=== PATIENT | female | born 1970 | race Two or more races ===

== ENCOUNTER 2017-02-26 10:42 | Emergency (ER) | payer OTHER ==
[2017-02-26 10:55] VITALS: BP 180/100; PULSE 65; TEMP 97.8; BMI 26.6
--- NOTE | 2017-02-26 11:07 | PDOC ---
History of Present Illness - General Chief Complaint: Urinary Problem Stated Complaint: VAGINAL INFECTION Time Seen by Provider: 02/26/17 10:57 History Source: Patient Exam Limitations: No Limitations - History of Present Illness Initial Comments: 02/26/17 11:03 Patient is a 46-year-old female history of diabetes and hypertension currently out of her medication for both. Patient presents with 2 day of dysuria, frequency, no bleeding, no vaginal discharge, last sexual encounter was yesterday with her . Reports symptoms prior to that. Lower back pain. No fever. Past Medical History: Denies. Allergies: No known allergies Medications: Enalapril, metformin Family History: Non-contributory Social History: Denies smoking, alcohol use, or IVDU Review of Systems GENERAL/CONSTITUTIONAL: No fever or chills. No weakness. No weight change. HEAD, EYES, EARS, NOSE AND THROAT: No change in vision. No ear pain or discharge. No sore throat. CARDIOVASCULAR: No chest pain or shortness of breath. RESPIRATORY: No cough, wheezing, or hemoptysis. GASTROINTESTINAL: No nausea, vomiting, diarrhea or constipation. No rectal bleeding. GENITOURINARY: Dysuria, frequency, low back pain. MUSCULOSKELETAL: No joint or muscle swelling or pain. No neck or back pain. SKIN : No rash or easy bruising. Physical Exam: GENERAL: The patient is awake, alert, and fully oriented, in no acute distress. NECK: Normal range of motion, supple without lymphadenopathy, JVD, or masses. LUNGS: Breath sounds equal, clear to auscultation bilaterally. No wheezes, and no crackles. HEART: Regular rate and rhythm, normal S1 and S2 without murmur, rub or gallop. ABDOMEN: Soft, suprapubic tenderness, normoactive bowel sounds. No guarding, no rebound. No masses. No bruising or abrasions MUSCULOSKELETAL: Normal range of motion, no edema. No clubbing or cyanosis. No cords, erythema, or tenderness. No CVA Tenderness with fist palpation. NEUROLOGICAL: Cranial nerves II through XII grossly intact. Normal speech, normal gait. SKIN: Warm, Dry, normal turgor, no rashes or lesions noted. 02/26/17 12:41 Past History - Past Medical History Allergies/Adverse Reactions: Allergies Allergy/AdvReac Type Severity Reaction Status Date / Time No Known Allergies Allergy Verified 02/26/17 10:48 Home Medications: Ambulatory Orders Enalapril Maleate [Vasotec] 20 mg PO DAILY #30 tablet 02/26/17 Fluconazole [Diflucan -] 100 mg PO ONCE #1 tablet 02/26/17 Metformin HCl 500 mg PO BID 02/26/17 Nitrofurantoin Monohyd/M-Cryst [Macrobid -] 100 mg PO BID #14 capsule 02/26/17 Diabetes: Yes (niddm) HTN: Yes - Surgical History Abdominal Surgery: Yes (tubal ligation) - Psycho/Social/Smoking Cessation Hx Anxiety: No Suicidal Ideation: No Smoking History: Never smoked Have you smoked in the past 12 months: No Information on smoking cessation initiated: No Hx Alcohol Use: No Drug/Substance Use Hx: No Substance Use Type: None *Physical Exam - Vital Signs Last Vital Signs Temp Pulse Resp BP Pulse Ox 97.8 F 65 18 180/100 100 02/26/17 10:49 02/26/17 10:49 02/26/17 10:49 02/26/17 10:49 02/26/17 10:49 Medical Decision Making - Medical Decision Making 02/26/17 11:28 A/P : Patient with two days of dysuria, lower back pain, no vaginal discomfort or symptoms. Patient reports that several days ago, she thought she was getting a vaginal infection, had itching, then urinary pain started. Itching is resolved. Laboratory Tests 02/26/17 11:00 Urine Color Yellow Urine Appearance Cloudy Urine pH 6.0 Ur Specific [place] Pending Urine Protein 2+ H Urine Glucose (UA) Negative Urine Ketones Negative Urine Blood 3+ H Urine Nitrite Negative Urine Bilirubin Negative Urine Urobilinogen Negative Ur Leukocyte Esterase 3+ H Urine RBC 8 Urine WBC 369 Ur Epithelial Cells Rare Urine Bacteria Rare Urine Mucus Rare Urine HCG, Qual Negative Patient with UTI. + 3 blood, just completed menses a day ago. Will DC patient on macrobid, one dose of diflucan. Patient also given prescription for her HTN meds and metformin, with strict instructions to follow up with PM as soon as possible. I discussed the physical exam findings, ancillary test results and final diagnoses with the patient. I answered all of the patient's questions. The patient was satisfied with the care received and felt comfortable with the discharge plan and treatment plan. The patient will call to arrange follow-up and will return to the Emergency Department with any new, persistent or worsening symptoms. *DC/Admit/Observation/Transfer Diagnosis at time of Disposition: Medication refill Urinary tract infection Qualifiers: Urinary tract infection type: site unspecified Hematuria presence: without hematuria Qualified Code(s): N39.0 - Urinary tract infection, site not specified - Discharge Dispostion Disposition: HOME Condition at time of disposition: Good Admit: No - Prescriptions Prescriptions: Fluconazole [Diflucan -] 100 mg PO ONCE #1 tablet Nitrofurantoin Monohyd/M-Cryst [Macrobid -] 100 mg PO BID #14 capsule Enalapril Maleate [Vasotec] 20 mg PO DAILY #30 tablet - Patient Instructions Printed Discharge Instructions: DI for Urinary Tract Infection (UTI) Additional Instructions: Recommend follow-up with BILLING CLERK If any increased back pain, nausea vomiting, blood in urine, or any other concerns return to ER
[2017-02-26 11:13] LABS: URINE APPEARANCE CLOUDY; URINE BILIRUBIN NEGATIVE (NEGATIVE); URINE COLOR YELLOW; URINE GLUCOSE (UA) NEGATIVE (NEGATIVE); URINE KETONE NEGATIVE (NEGATIVE); URINE NITRITE NEGATIVE (NEGATIVE); URINE UROBILINOGEN NEGATIVE E.U./dl (0.2-1.0)
[2017-02-26 11:16] LABS: URINE BLOOD 3+ (NEGATIVE); URINE LEUK ESTERASE 3+ (NEGATIVE); URINE PROTEIN 2+ (NEGATIVE)
[2017-02-26 11:20] LABS: URINE BACTERIA RARE /hpf (NONE SEEN); URINE MUCUS RARE; URINE RBC 8 /hpf (0-3); URINE WBC 369 /hpf (3-5)
== END 2017-02-26 11:56 | disposition home or self-care (01) ==
LOC: JERFT 10:42
DX: N39.0 Urinary tract infection, site not specified (principal); Z76.0 Encounter for issue of repeat prescription; E11.9 Type 2 diabetes mellitus without complications; I10 Essential (primary) hypertension
CPT/HCPCS: 81003; 81015; 84703; 87086; 87186; 99281-25

== ENCOUNTER 2017-03-30 20:19 | Emergency (ER) | payer OTHER ==
[2017-03-30 20:40] VITALS: BP 151/97; PULSE 66; TEMP 98.1; BMI 26.6
[2017-03-30] MEDS ORDERED: DIPHTH,PERTUSS(ACELL),TET 0.5 ML DISP.SYRIN IM ONE (22:38)
[2017-03-30] MEDS ORDERED: AMPICILLIN NA/SULBACTAM NA 3 GM in SODIUM CHLORIDE 100 ML IVPB ONE (22:45)
--- NOTE | 2017-03-30 22:51 | PDOC ---
History of Present Illness <Charley Navarro - Last Filed: 03/30/17 23:14> - History of Present Illness Initial Comments: 03/30/17 22:45 CHIEF COMPLAINT: cat bite HISTORY OF PRESENT ILLNESS: 47 yo F with hx of NIDDM and HTN presents to [facility] with cat bite. Patient states her cat bit her on the forearm while she was trying to give it a bath today. Patient states she washed the bite with soap and cleaned it with iodine. Patient states her cat has never had vaccines "but was supposed to get some next week." Patient does not remember the last time she received a tetanus shot. No recent travel or sick contacts. PAST MEDICAL HISTORY: as per HPI FAMILY HISTORY: Denies SOCIAL HISTORY: Denies tobacco, alcohol, illicit drug use. SURGICAL HISTORY: Denies ALLERGIES: No known drug allergies REVIEW OF SYSTEMS General/Constitutional: Denies fever or chills. Gastrointestinal: Denies nausea, vomiting, diarrhea. Skin and breasts: Cat bite to left forearm, swelling. PHYSICAL EXAM General Appearance: Well-appearing, appropriately dressed. No apparent distress. HEENT: EOMI, PERRLA Respiratory/Chest: Lungs CTAB. Cardiovascular: RRR. S1, S2. Vascular Pulses: Dorsalis-Pedis (R): 2+, Dorsalis-Pedis (L): 2+ Musculoskeletal/Extremities: Normal inspection. FROM of all extremities, normal capillary refill. Pelvis Stable. No CVA tenderness. No tenderness to extremities, pedal edema, swelling, erythema or deformity. Integumentary: 4 puncture bite wounds to dorsal aspect of left forearm with surrounding tenderness, erythema, swelling and warmth. Appropriate color, dry , warm. No cyanosis, erythema, jaundice or rash Neurologic: embroidery specialist II-XII intact. Fully oriented, alert. Appropriate mood/affect. Motor strength 5/5. No appreciable EOM palsy, facial droop or sensory deficit. <Cecelia Sanchez - Last Filed: 03/31/17 14:38> - General Chief Complaint: Bite Stated Complaint: CAT BITE Time Seen by Provider: 03/30/17 21:53 Past History <Charley Navarro - Last Filed: 03/30/17 23:14> - Past Medical History Diabetes: Yes (niddm) HTN: Yes - Surgical History Abdominal Surgery: Yes (tubal ligation) - Psycho/Social/Smoking Cessation Hx Anxiety: No Suicidal Ideation: No Smoking History: Never smoked Have you smoked in the past 12 months: No Hx Alcohol Use: No Drug/Substance Use Hx: No Substance Use Type: None <Cecelia Sanchez - Last Filed: 03/31/17 14:38> - Past Medical History Allergies/Adverse Reactions: Allergies Allergy/AdvReac Type Severity Reaction Status Date / Time No Known Allergies Allergy Verified 03/30/17 20:40 Home Medications: Ambulatory Orders Enalapril Maleate [Vasotec] 20 mg PO DAILY #30 tablet 02/26/17 Fluconazole [Diflucan -] 100 mg PO ONCE #1 tablet 02/26/17 Metformin HCl 500 mg PO BID 02/26/17 Nitrofurantoin Monohyd/M-Cryst [Macrobid -] 100 mg PO BID #14 capsule 02/26/17 Amoxicillin/Potassium Clav [Augmentin 875-125 Tablet] 1 each PO BID #20 tablet 03/31/17 *Physical Exam - Vital Signs Last Vital Signs Temp Pulse Resp BP Pulse Ox 98.1 F 66 18 151/97 99 03/30/17 20:37 03/30/17 20:37 03/30/17 20:37 03/30/17 20:37 03/30/17 20:37 <Charley Navarro - Last Filed: 03/30/17 23:14> - Vital Signs Last Vital Signs Temp Pulse Resp BP Pulse Ox 98.1 F 66 18 151/97 99 03/30/17 20:37 03/30/17 20:37 03/30/17 20:37 03/30/17 20:37 03/30/17 20:37 <Cecelia Sanchez - Last Filed: 03/31/17 14:38> ED Treatment Course - Medications Given in the ED: ED Medications Discontinued Medications Generic Name Dose Route Start Last Admin Trade Name Freq PRN Reason Stop Dose Admin Ampicillin Sodium/Sulbactam 100 mls @ 200 mls/hr 03/30/17 22:45 03/30/17 23:04 Sodium 3 gm/ Sodium Chloride IVPB 03/30/17 23:14 200 mls/hr ONCE ONE Administration <Charley Navarro - Last Filed: 03/30/17 23:14> Medical Decision Making - Medical Decision Making 03/30/17 22:50 47 yo F with hx of NIDDM and HTN presents to fast track with cat bite. -Tdap IM -Patient does not meet rabies PEP algorithm, animal is to be observed for 10 days prior to beginning rabies PEP. Discussed case with attending MD Navarro, patient transferred to main ED for first dose IV abx. -Unasyn 3 g IVPB, will rx Augmentin on dispo <Cecelia Sanchez - Last Filed: 03/31/17 14:38> *DC/Admit/Observation/Transfer - Discharge Dispostion Admit: No <Charley Navarro - Last Filed: 03/30/17 23:14> <Cecelia Sanchez - Last Filed: 03/31/17 14:38> Diagnosis at time of Disposition: Cat bite Qualifiers: Encounter type: initial encounter Qualified Code(s): W55.01XA - Bitten by cat, initial encounter - Discharge Dispostion Disposition: HOME Condition at time of disposition: Stable - Prescriptions Prescriptions: Amoxicillin/Potassium Clav [Augmentin 875-125 Tablet] 1 each PO BID #20 tablet - Patient Instructions Printed Discharge Instructions: How to Care for a Domestic Animal Bite Additional Instructions: Regrese al departamento de emergencias si la hinchazn empeora, si tiene fiebre , o si hay regino bazzi en el brazo. Print Language: OCCITAN
[2017-03-30] MEDS ORDERED: AMPICILLIN NA/SULBACTAM NA 1.5 GM VIAL ONE (22:53)
== END 2017-03-30 23:41 | disposition home or self-care (01) ==
LOC: JERFT 20:19 → JER 20:19
DX: S51.852A Open bite of left forearm, initial encounter (principal); W55.01XA Bitten by cat, initial encounter; Y93.K9 Activity, other involving animal care; Y92.89 Other specified places as the place of occurrence of the external cause; I10 Essential (primary) hypertension; E11.9 Type 2 diabetes mellitus without complications; Z79.84 Long term (current) use of oral hypoglycemic drugs
CPT/HCPCS: 90715; 96365; 99281-25

== ENCOUNTER 2017-03-31 20:18 | Inpatient (IN) | payer OTHER ==
[2017-03-31] MEDS ORDERED: PIPERACILLIN/TAZOB 4.5 GM/100 ML PRE-DOCKED IVPB ONE (21:40)
[2017-03-31] MEDS ORDERED: cefTRIAXone 1 GM/50 ML BAG (PRE-DOCKED) IVPB ONE (21:40)
[2017-03-31 21:44] LABS: BASOPHIL 0.5 % (0-2.0); EOSINOPHIL 1.7 % (0-4.5); MCH 28.6 pg (25.7-33.7); MCHC 33.1 g/dl (32.0-36.0); MEAN CELL VOLUME 86.2 fl (80-96); MEAN PLT VOLUME 9.5 fl (7.5-11.1); PLATELET COUNT 162 K/MM3 (134-434)
--- NOTE | 2017-03-31 21:48 | PDOC ---
History of Present Illness - General Chief Complaint: Revisit,Wound Recheck Stated Complaint: FOLLOW UP Time Seen by Provider: 03/31/17 21:24 History Source: Patient, Old Records Exam Limitations: Language Barrier - History of Present Illness Initial Comments: 03/31/17 21:42 47yo Female patient w/ PmHx: DM, and HTN presents to ED c/o worsening symptoms from cat bite yesterday. Patient was reportedly bitten by her cat while trying to give it a bath yesterday. She was seen and treated with Tetanus, Unasyn 3G and sent home with Augmentin orally. Patient now returns with worsening left arm pain, swelling, redness, and decreased ROM. She denies fever, CP, Abd pain, n/v/d, diff breathing or any other complaints at this time. PCP- None. Timing/Duration: reports: changing over time, getting worse. denies: just prior to arrival, other, constant, gone now, intermittent, week, yesterday, this afternoon, this evening, this morning Severity: Yes: severe. No: mild, moderate Location: reports: extremities. denies: none, face, feet, genitalia, generalized, hands, other, scalp, torso Respiratory Risk Factors: denies: no cause identified, exposure to illness, exposure to allergen, foods, insect bite, insect sting, medications, pollen, soaps, other Modifying Factors: worse with: antihistamine, calamine lotion, prednisone, scratching, topical steriods, other Associated Symptoms: reports: swelling/mass/lumps. denies: denies symptoms, blisters, change in skin texture, edema, fever, flushing, headache, hives, jaundice, malaise, nasal congestion, numbness, pallor, paresthesia, petechiae, rash, sore throat, tingling, other Past History - Travel Traveled outside of the country in the last 30 days: No Close contact w/someone who was outside of country & ill: No - Past Medical History Allergies/Adverse Reactions: Allergies Allergy/AdvReac Type Severity Reaction Status Date / Time No Known Allergies Allergy Verified 03/31/17 20:23 Home Medications: Ambulatory Orders Enalapril Maleate [Vasotec] 20 mg PO DAILY #30 tablet 02/26/17 Amoxicillin/Potassium Clav [Augmentin 875-125 Tablet] 1 each PO BID #20 tablet 03/31/17 Diabetes: Yes (niddm) HTN: Yes - Surgical History Abdominal Surgery: Yes (tubal ligation) - Psycho/Social/Smoking Cessation Hx Anxiety: No Suicidal Ideation: No Smoking History: Never smoked Have you smoked in the past 12 months: No Hx Alcohol Use: No Drug/Substance Use Hx: No Substance Use Type: None Review of Systems - Review of Systems Able to Perform ROS?: Yes Is the patient limited Togolese proficient: No Constitutional: No: Chills, Fever Musculoskeletal: Yes: Other (Decreased ROM left arm) Integumentary: Yes: Erythema, Other (Swelling, Pain) Neurological: No: Numbness, Paresthesia, Tingling, Weakness, Ataxia All Other Systems: Reviewed and Negative *Physical Exam - Vital Signs Last Vital Signs Temp Pulse Resp BP Pulse Ox 98.8 F 76 18 145/68 99 03/31/17 20:20 03/31/17 20:20 03/31/17 20:20 03/31/17 20:20 03/31/17 20:20 - Physical Exam General Appearance: Yes: Nourished, Appropriately Dressed, Apparent Distress, Moderate Distress. No: Mild Distress, Severe Distress Neck: positive: Trachea midline, Supple. negative: Stridor, Lymphadenopathy (R) , Lymphadenopathy (L) Respiratory/Chest: positive: Lungs Clear, Normal Breath Sounds. negative: Chest Tender, Respiratory Distress, Accessory Muscle Use, Labored Respiration, Rapid RR, Stridor, Wheezing Cardiovascular: positive: Regular Rhythm, Regular Rate. negative: Edema Gastrointestinal/Abdominal: positive: Normal Bowel Sounds, Soft. negative: Distended, Guarding, Rebound, Tenderness Musculoskeletal: positive: Normal Inspection. negative: CVA Tenderness, Decreased Range of Motion, Vertebral Tenderness Extremity: positive: Normal Capillary Refill, Swelling, Erythema, Inflammation. negative: Normal Inspection (Left arm with puncture wounds, Cellulits), Normal Range of Motion (Left arm) Integumentary: positive: Normal Color, Dry, Warm, Swelling Neurologic: positive: balance staff inspector II-XII NML intact, Fully Oriented, Alert, Normal Mood/ Affect, Normal Response. negative: Motor Strength 5/5 (Decrease Left arm movement) ED Treatment Course - LABORATORY CBC & Chemistry Diagram: 03/31/17 21:40 03/31/17 21:40 *DC/Admit/Observation/Transfer Diagnosis at time of Disposition: Cellulitis of left upper extremity Cat bite Qualifiers: Encounter type: initial encounter Qualified Code(s): W55.01XA - Bitten by cat, initial encounter - Discharge Dispostion Condition at time of disposition: Fair Admit: Yes
[2017-03-31] MEDS ORDERED: PIPERACILLIN/TAZOB 4.5 GM 100 ML IVPB ONE (21:51)
[2017-03-31] MEDS ORDERED: CEFTRIAXONE 50 ML ONE (21:51)
[2017-03-31 22:09] LABS: ALBUMIN 3.9 g/dl (3.4-5.0); ANION GAP 9 (8-16); BILIRUBIN,TOTAL 0.3 mg/dL (0.2-1.0); CALCIUM 9.4 mg/dL (8.5-10.1); CO2 24 mmol/L (21-32); GLUCOSE,RANDOM 288 mg/dL (74-106); SGOT/AST 14 U/L (15-37); SGPT/ALT 34 U/L (12-78); TOT PROT 7.6 g/dl (6.4-8.2)
[2017-03-31] MEDS ORDERED: SODIUM CHLORIDE 1,000 ML IV STA (22:09)
[2017-03-31] MEDS ORDERED: morphine CARPU-JECT 4 MG/1 ML DISP.SYRIN IVPUSH ONE (22:09)
[2017-03-31 22:10] LABS: ALK PHOS 101 U/L (45-117)
[2017-03-31] MEDS ORDERED: morphine CARPU-JECT 4 MG/1 ML DISP.SYRIN ONE (22:17)
--- NOTE | 2017-03-31 23:09 | PN ---
Teaching Attending Note Name of Resident: Katie Albarado ATTENDING PHYSICIAN STATEMENT I saw and evaluated the patient. I reviewed the resident's note and discussed the case with the resident. I agree with the resident's findings and plan as documented. SUBJECTIVE: 47 yo F with pmhx of DM, and HTN who presents with cat bite. Notes she was in the ED yesterday for same bite and was given Augmentin. Pt. states pain worsened today. Notes also increased erythema and edema, still has range of motion of all fingers. States she took the Augmentin OBJECTIVE: Physical: VS: Vital Signs Period Temp Pulse Resp BP Sys/Stark Pulse Ox Last 24 Hr 98.8 F 76 18 145/68 99-99 GEN: NAD, resting in bed, able to speak full sentences HEENT: NCAT, PERRL, throat without erythema or exudates CARD: RRR S1, S2 RESP: CTAB ABD: BS X4, NTD to palpation EXT: Left forearm with 7X2 area extending from wrist to mid-arm. CBCD WBC 11.0 K/mm3 (4.0-10.0) H 03/31/17 21:40 RBC 4.63 M/mm3 (3.60-5.2) 03/31/17 21:40 Hgb 13.2 GM/dL (10.7-15.3) 03/31/17 21:40 Hct 39.9 % (32.4-45.2) 03/31/17 21:40 MCV 86.2 fl (80-96) 03/31/17 21:40 MCHC 33.1 g/dl (32.0-36.0) 03/31/17 21:40 RDW 14.0 % (11.6-15.6) 03/31/17 21:40 Plt Count 162 K/MM3 (134-434) 03/31/17 21:40 MPV 9.5 fl (7.5-11.1) 03/31/17 21:40 CMP Sodium 135 mmol/L (136-145) L 03/31/17 21:40 Potassium 3.7 mmol/L (3.5-5.1) 03/31/17 21:40 Chloride 102 mmol/L (98-107) 03/31/17 21:40 Carbon Dioxide 24 mmol/L (21-32) 03/31/17 21:40 Anion Gap 9 (8-16) 03/31/17 21:40 BUN 12 mg/dL (7-18) 03/31/17 21:40 Creatinine 1.0 mg/dL (0.55-1.02) 03/31/17 21:40 Creat Clearance w eGFR 59.69 (>60) 03/31/17 21:40 Random Glucose 288 mg/dL (74-106) H 03/31/17 21:40 Calcium 9.4 mg/dL (8.5-10.1) 03/31/17 21:40 Total Bilirubin 0.3 mg/dL (0.2-1.0) 03/31/17 21:40 AST 14 U/L (15-37) L 03/31/17 21:40 ALT 34 U/L (12-78) 03/31/17 21:40 Alkaline Phosphatase 101 U/L (45-117) 03/31/17 21:40 Total Protein 7.6 g/dl (6.4-8.2) 03/31/17 21:40 Albumin 3.9 g/dl (3.4-5.0) 03/31/17 21:40 Home Medications Medication Instructions Recorded Enalapril Maleate [Vasotec] 20 mg PO DAILY #30 tablet 02/26/17 Amoxicillin/Potassium Clav 1 each PO BID #20 tablet 03/31/17 [Augmentin 875-125 Tablet] ASSESSMENT AND PLAN: 47 yo F with pmhx of DM and HTN who presents post cat bite with progression on Augmentin with increased Cellulitis 1.) Cellulitis secondary to Cat bite - Zosyn - Blood cx - Xray - ID consult 2.) DM - FS - RAISS 3.) HTN - C/W Vasotec 4.) Dvt Ppx - Low Risk- SCDS Place in Med-Sx
--- NOTE | 2017-04-01 00:06 | HP ---
CHIEF COMPLAINT: worsening L arm pain PCP: none Family Contact: Varsha Sauceda (, ); he would like to be contacted if there are any updates. History Source: Interview conducted partly in Kosovan with partner (Varsha) translating HISTORY OF PRESENT ILLNESS: Patient is a 47yo woman with PMH of HTN and poorly controlled NIDDM who presents with increasing L forearm pain and swelling following a cat bite/ scratch 24hours ago. The patient was at her US[employer] when she attempted to bathe her cat, who bit her 3-4 times in the L forearm. She presented to the ED yesterday following the event, and received tetanus shot and started on Augmentin PO. She endorses that she has been taking the Augmentin as directed, and has not skipped a dose. She returned again this evening, because of worsening pain. She endorses feeling subjectively cold and having chills, but denies any fever, nausea or vomiting. No chest pain, pressure or tightness. No myalgia or arthralgia. Of note, they received the cat from a friend, who is only about 1 years old, and has yet to see vet. ER course was notable for: (1) Afebrile without leukocytosis (2)Received 1 dose X 4gm Unasyn IVP Recent Travel: No PAST MEDICAL HISTORY: #HTN - on home Enalapril #NIDDM - was on Metformin 500 BID; stated stop taking it a few months ago because she doesn't have health insurance. However, she is on Medicaid PAST SURGICAL HISTORY: #C - section x2 #Tubal ligation Social History: From [place], does not work, has two teenage sons (ages 10 & 14) , one of whom is Autistic Smoking: no Alcohol: no Drugs: no Family History: non-contributory Allergies: NKDA HOME MEDICATIONS: Home Medications Medication Instructions Recorded Enalapril Maleate [Vasotec] 20 mg PO DAILY #30 tablet 02/26/17 Amoxicillin/Potassium Clav 1 each PO BID #20 tablet 03/31/17 [Augmentin 875-125 Tablet] REVIEW OF SYSTEMS CONSTITUTIONAL: +chills Absent: fever, diaphoresis, generalized weakness, malaise, loss of appetite, weight change HEENT: Absent: rhinorrhea, nasal congestion, throat pain, throat swelling, difficulty swallowing, mouth swelling, ear pain, eye pain, visual changes CARDIOVASCULAR: Absent: chest pain, syncope, palpitations, irregular heart rate, lightheadedness , peripheral edema RESPIRATORY: Absent: cough, shortness of breath, dyspnea with exertion, orthopnea, wheezing, stridor, hemoptysis GASTROINTESTINAL: Absent: abdominal pain, abdominal distension, nausea, vomiting, diarrhea, constipation, melena, hematochezia GENITOURINARY: Absent: dysuria, frequency, urgency, hesitancy, hematuria, flank pain, genital pain MUSCULOSKELETAL: Absent: myalgia, arthralgia, joint swelling, back pain, neck pain SKIN: +dorsal aspect of Left forearm is erythematous, with 3 puncture wound sites, erythematous and swollen with 3 healing puncture wounds. HEMATOLOGIC/IMMUNOLOGIC: Absent: easy bleeding, easy bruising, lymphadenopathy, frequent infections ENDOCRINE: Absent: unexplained weight gain, unexplained weight loss, heat intolerance, cold intolerance NEUROLOGIC: Absent: headache, focal weakness or paresthesias, dizziness, unsteady gait, seizure, mental status changes, bladder or bowel incontinence PSYCHIATRIC: Absent: anxiety, depression, suicidal or homicidal ideation, hallucinations. PHYSICAL EXAMINATION Vital Signs - 24 hr 03/31/17 03/31/17 20:20 21:46 Temperature 98.8 F Pulse Rate 76 Respiratory 18 Rate Blood Pressure 145/68 O2 Sat by Pulse 99 99 Oximetry (%) GENERAL: Awake, alert, and fully oriented, in no acute distress. HEAD: Normal with no signs of trauma. EYES: PERRLA, EOMI, conjunctiva clear. EARS, NOSE, THROAT: Oropharynx clear without exudates. Moist mucous membranes. NECK: Supple, no cervical LAD LUNGS: CTAB, no wheezes, rubs, or rhonchi HEART: Regular rate and rhythm, normal S1 and S2 without murmur, rub or gallop. ABDOMEN: Soft, NDNT, no guarding, no rebound, no masses. No hepatosplenomegaly. MUSCULOSKELETAL: Normal range of motion at all joints. No bony deformities or tenderness. Upper Extremities: ROM intact in elbow, wrist, thumb opposition and abduction. No L axillary lymphadenopathy LOWER EXTREMITIES: 2+ pulses, warm, well-perfused. No peripheral edema. NEUROLOGICAL: Grossly intact, not formally tested PSYCHIATRIC: Cooperative. Good eye contact. Appropriate mood and affect. SKIN: Warm, dry, normal turgor. 3 puncture wound bites to dorsal aspect of L forearm with 6cm in length of surrounding tenderness, erythema, swelling, and warmth. Crepitus not assessed 2/2 to pain. Laboratory Results - last 24 hr 03/31/17 03/31/17 03/31/17 21:40 21:40 21:40 WBC 11.0 H RBC 4.63 Hgb 13.2 Hct 39.9 MCV 86.2 MCH 28.6 MCHC 33.1 RDW 14.0 Plt Count 162 MPV 9.5 Neutrophils % 68.0 Lymphocytes % 22.2 Monocytes % 7.6 Eosinophils % 1.7 Basophils % 0.5 Sodium 135 L Potassium 3.7 Chloride 102 Carbon Dioxide 24 Anion Gap 9 BUN 12 Creatinine 1.0 Creat Clearance w eGFR 59.69 Random Glucose 288 H Calcium 9.4 Total Bilirubin 0.3 AST 14 L ALT 34 Alkaline Phosphatase 101 Total Protein 7.6 Albumin 3.9 Serum , Qual Negative L arm radiograph: pending ASSESSMENT/PLAN: 47yo woman with HTN and poorly controlled NIDDM who presents with worsening L arm cellulitis from a cat bite despite being on Augmentin PO. #L arm cellulitis -ID consulted (Dr. Russell) -Zosyn 3.375 Q8H (received 1st in ED (4g) at 22:00) -L arm Xray -Morphine 4mg Q6h PRN for pain #NIDDM -BGM ACHS -ISS ACHS #HTN -Continue home Enalapril 20mg PO #F/E/N -NS @ 100cc/hr -Electrolytes wnl -Diabetic and Na controlled diet #Prophylaxis -DVT risk - low; encourage early ambulation -GI not indicated #Dispo: -Admit to Med/surg -FULL code d/w with Dr. Bassett and medical team JOE MANCUSO MD PGY-1 Visit type - Emergency Visit Emergency Visit: Yes ED Registration Date: 03/31/17 Care time: The patient presented to the Emergency Department on the above date and was hospitalized for further evaluation of their emergent condition. - New Patient This patient is new to me today: Yes Date on this admission: 03/31/17 - Critical Care Critical Care patient: No
[2017-04-01] MEDS ORDERED: SODIUM CHLORIDE 1,000 ML IV SCH (00:15)
[2017-04-01 01:57] VITALS: BMI 30.2
[2017-04-01] MEDS: morphine CARPU-JECT 4 MG/1 ML DISP.SYRIN IVPUSH PRN ×3 (02:02→13:19)
[2017-04-01] MEDS ORDERED: PIPERACILLIN/TAZOB 3.375 GM/50 ML PRE-DOCKED IVPB SCH (06:00)
[2017-04-01] MEDS ORDERED: PIPERACILLIN/TAZOB 3.375 GM/50 ML PRE-DOCKED IVPB ONE (06:00)
[2017-04-01] MEDS: INSULIN SLIDING SCALE (NOVOLOG) 1 VIAL SQ SCH ×4 (06:03→21:37)
[2017-04-01 07:09] LABS: MCH 29.6 pg (25.7-33.7); MCHC 34.5 g/dl (32.0-36.0); MEAN PLT VOLUME 9.8 fl (7.5-11.1); PLATELET COUNT 146 K/MM3 (134-434); RDW 13.8 % (11.6-15.6); WHITE BLOOD COUNT 9.9 K/mm3 (4.0-10.0)
[2017-04-01 07:34] LABS: ANION GAP 11 (8-16); CO2 22 mmol/L (21-32); CREATININE 0.7 mg/dL (0.55-1.02); GLUCOSE,RANDOM 216 mg/dL (74-106)
[2017-04-01] MEDS: ENALAPRIL MALEATE 10 MG TABLET (FP) PO SCH (09:24)
--- NOTE | 2017-04-01 09:50 | EKG ---
Test Reason : Blood Pressure : / mmHG Vent. Rate : 064 BPM Atrial Rate : 064 BPM P-R Int : 150 ms QRS Dur : 086 ms QT Int : 432 ms P-R-T Axes : 040 047 036 degrees QTc Int : 445 ms NORMAL SINUS RHYTHM NORMAL ECG NO PREVIOUS ECGS AVAILABLE Confirmed by DIANA STRONG MD ([id number]) on 04/01/2017 9:49:50 AM Referred By: Confirmed By:DIANA STRONG MD
--- NOTE | 2017-04-01 13:03 | PN ---
Teaching Attending Note Name of Resident: Jean Pierre Johnson ATTENDING PHYSICIAN STATEMENT I saw and evaluated the patient. I reviewed the resident's note and discussed the case with the resident. I agree with the resident's findings and plan as documented. SUBJECTIVE:states pain and erythema has improved on her arm. denies CP, SOB, fever, chills, N/V/C/D OBJECTIVE: Last Vital Signs Temp Pulse Resp BP Pulse Ox 97.9 F 68 18 155/96 99 04/01/17 01:50 04/01/17 01:50 04/01/17 01:50 04/01/17 01:50 04/01/17 03:34 General NAD CV S1 S2 RRR no murmur/rub/gallop Lungs CTA B/L no wheezing/rales/rhonchi Extremities mild erythema to L forearm, no streaking up the arm, non tender, multiple scratches up and down the arm, 2 puncture sites on inner forearm with no active drainage. no LN or pain nodes felt along the arm or the axilla ASSESSMENT AND PLAN: 47yo F wtih PMH HTN and DM presented to the ER after getting bitten by her cat while trying to give them a bath 1. L forearm cellulitis-due to cat bite and scratches. no concern for cat scratch fever. clinically looks improved. was on augmentin at home and came in after only taking 3 doses. received Ceftriaxone in the ER. started on Zosyn. ID consulted. Cx consulted 2. Hypokalemia- Kcl 40meq po 3. HTN- controleld. cont home medications 4. DM- controlled. cont home medications 5. DVT ppx- EAM
--- NOTE | 2017-04-01 13:39 | CONSULT ---
Consult Consult Specialty:: infectious diseases Reason for Consultation:: cellulitits of the left hand. cat bite - History of Present Illness Chief Complaint: swelling of the hand History of Present Illness: 47yo woman with PMH of HTN and d NIDDM admitted with increasing L forearm pain and swelling following a cat bite/scratch 2 days back. The patient was bit when she attempted to bathe her cat, who bit her 3-4 times in the L forearm. she initially came to the er and was given tetatnus shot and was started on po augmentin patient took abx but found that the pain and swelling increased and patient came back to the ed and was admitted currently main complaint is of pain and swelling - History Source History Provided By: Patient, Family Member Limitations to Obtaining History: Language Barrier - Past Medical History ...LMP: 03/19/17 ...: No - Alcohol/Substance Use Hx Alcohol Use: No - Smoking History Smoking history: Never smoked Have you smoked in the past 12 months: No Home Medications - Allergies Allergies/Adverse Reactions: Allergies Allergy/AdvReac Type Severity Reaction Status Date / Time No Known Allergies Allergy Verified 03/31/17 20:23 - Home Medications Home Medications: Ambulatory Orders Enalapril Maleate [Vasotec] 20 mg PO DAILY #30 tablet 02/26/17 Amoxicillin/Potassium Clav [Augmentin 875-125 Tablet] 1 each PO BID #20 tablet 03/31/17 Review of Systems - Review of Systems Constitutional: reports: No Symptoms Eyes: reports: No Symptoms HENT: reports: No Symptoms Neck: reports: No Symptoms Cardiovascular: reports: No Symptoms Respiratory: reports: No Symptoms Gastrointestinal: reports: No Symptoms Genitourinary: reports: No Symptoms Musculoskeletal: reports: Extremity Pain, Muscle Pain Integumentary: reports: Erythema, Other Neurological: reports: No Symptoms Endocrine: reports: No Symptoms Hematology/Lymphatic: reports: No Symptoms Psychiatric: reports: No Symptoms Physical Exam Vital Signs: Vital Signs Temperature 97.9 F 04/01/17 01:50 Pulse Rate 68 04/01/17 01:50 Respiratory Rate 18 04/01/17 01:50 Blood Pressure 155/96 04/01/17 01:50 O2 Sat by Pulse Oximetry (%) 99 04/01/17 03:34 Constitutional: Yes: Well Nourished, Calm, Mild Distress Eyes: Yes: Conjunctiva Clear HENT: Yes: Atraumatic Neck: Yes: Supple, Trachea Midline Cardiovascular: Yes: Regular Rate and Rhythm Respiratory: Yes: Regular, CTA Bilaterally Gastrointestinal: Yes: Normal Bowel Sounds, Soft Musculoskeletal: Yes: Other Extremities: Yes: Other (swelling of the left arm with holt of cat bite) Wound/Incision: Yes: Clean/Dry, Open to air Neurological: Yes: Alert, Oriented Psychiatric: Yes: Alert, Oriented Labs: CBC, BMP 04/01/17 06:00 04/01/17 06:00 Imaging - Results X-ray: Report Reviewed, Image Reviewed Assessment/Plan this patient with h/o of dm and who was bitten by the cat who is there domestic cat since last 2 yrs comes in with swelling and cellulitis of the left arm cellulitits of the left arm multiple bite holt plan will start unasyn patient had one dose of zosyn patient also got tetatnus according to the notes await for cx reports rest as per primary team
[2017-04-01] MEDS ORDERED: PT OWN MED DRAWER 7, Y5N ONE ×2 (14:24→17:08)
[2017-04-01] MEDS ORDERED: POTASSIUM CHLORIDE ORAL LIQUID 20 MEQ/15 ML PO ONE (14:30)
--- NOTE | 2017-04-01 16:06 | MSN ---
Progress Note (short form) - Note Progress Note: Pt seen and examined at bedside, no acute overnight events. Pt states she is feeling much better, but still has tenderness and swelling in her R forearm and hand. Denies any numbness or tingling or pain anywhere else in her R arm. Denies any chest pain, SOB, h/a, leg pain, nausea or vomiting. ROS: as stated above Last Vital Signs Temp Pulse Resp BP Pulse Ox 98.2 F 66 18 135/66 99 04/01/17 14:14 04/01/17 14:14 04/01/17 14:14 04/01/17 14:14 04/01/17 03:34 PE: Constitutional: well appearing, in no apparent distress, resting comfortably Head: normocephalic, atraumatic Eye: PERRLA, EOM intact Heart: RRR, no arrythmia or murmur appreciated Lungs: CTA B/L Abd: soft, nontender, normoactive bowel sounds in all 4 quadrants Vascular: 2+ tibial pulses b/l, 2+ radial pulses b/l Skin: R forearm- 3-4 bites seen, some swelling around the forearm with marked swelling of R hand noted, painful to touch but no crepitus noted, erythema extends 3-4cm around each bite area MSK: hand roll filler 5/5 b/l Laboratory Results - last 24 hr 03/31/17 03/31/17 03/31/17 21:40 21:40 21:40 WBC 11.0 H RBC 4.63 Hgb 13.2 Hct 39.9 MCV 86.2 MCH 28.6 MCHC 33.1 RDW 14.0 Plt Count 162 MPV 9.5 Neutrophils % 68.0 Lymphocytes % 22.2 Monocytes % 7.6 Eosinophils % 1.7 Basophils % 0.5 Sodium 135 L Potassium 3.7 Chloride 102 Carbon Dioxide 24 Anion Gap 9 BUN 12 Creatinine 1.0 Creat Clearance w eGFR 59.69 POC Glucometer Random Glucose 288 H Calcium 9.4 Total Bilirubin 0.3 AST 14 L ALT 34 Alkaline Phosphatase 101 Total Protein 7.6 Albumin 3.9 Serum , Qual Negative 04/01/17 04/01/17 04/01/17 05:51 06:00 06:00 WBC 9.9 RBC 4.14 Hgb 12.3 Hct 35.6 MCV 86.0 MCH 29.6 MCHC 34.5 RDW 13.8 Plt Count 146 MPV 9.8 Neutrophils % Lymphocytes % Monocytes % Eosinophils % Basophils % Sodium 137 Potassium 3.4 L Chloride 104 Carbon Dioxide 22 Anion Gap 11 BUN 7 D Creatinine 0.7 D Creat Clearance w eGFR POC Glucometer 199 Random Glucose 216 H D Calcium 8.0 L Total Bilirubin AST ALT Alkaline Phosphatase Total Protein Albumin Serum , Qual 04/01/17 12:04 WBC RBC Hgb Hct MCV MCH MCHC RDW Plt Count MPV Neutrophils % Lymphocytes % Monocytes % Eosinophils % Basophils % Sodium Potassium Chloride Carbon Dioxide Anion Gap BUN Creatinine Creat Clearance w eGFR POC Glucometer 234 Random Glucose Calcium Total Bilirubin AST ALT Alkaline Phosphatase Total Protein Albumin Serum , Qual Assessment: Pt is a 47 y.o. F with PMHx of NIDDM and HTN who presented to the ED for worsening swelling and pain in her R forearm after several bites from her cat, was admitted for cellulitis and IV antibiotic management. Plan: 1. Cellulits: most likely due to bacterial infection from multiple cat bites, awaiting blood cultures for causal organism (high suspicion for Pasturella multocida, bartonella henslea, or S aureas). Per ID augmentin 875-125 given during initial ED visit was an appropriate treatment. During hospital stay has received rocephin 1gm (1 dose in the ED) and zosyn 4.5gm and 3.375gm doses, per ID has been switched to unasyn 3gm IV TID. Per ID will continue to monitor in the hospital due to R hand swelling and lack of cat vaccinations/vet care. Continue to monitor pain level, decreased morphine to 2mg IV push when asked for. Will cont to monitor mobility, swelling, and strength of R hand. 2. NIDDM: cont BGM and sliding scale insulin. Possible dietary and social work consult to help her with dietary control and access to medications (was previously on metformin 500mg BID but not currently taking). Diabetic and low salt diet ordered. 3. HTN: cont home enalapril 20mg PO 4. DVT prophylaxis: encourage early ambulation
--- NOTE | 2017-04-01 16:42 | PN ---
Physical Exam: SUBJECTIVE: Patient seen and examined No acute events overnight. Patient feels better this morning but still complains of pain in the L arm. OBJECTIVE: Vital Signs Period Temp Pulse Resp BP Sys/Stark Pulse Ox Last 24 Hr 97.9 F-98.2 F 66-70 18-20 135-155/65-96 99-100 GENERAL: The patient is awake, alert, and fully oriented, in no acute distress. HEAD: Normal with no signs of trauma. EYES: Extraocular movements intact, sclera anicteric, conjunctiva clear. No ptosis. ENT: Oropharynx clear without exudates, moist mucous membranes. NECK: Trachea midline, full range of motion, supple. LUNGS: Breath sounds equal, clear to auscultation bilaterally, no wheezes, no crackles, no accessory muscle use. HEART: Regular rate and rhythm, S1, S2 without murmur, rub or gallop. ABDOMEN: Soft, nontender, nondistended, normoactive bowel sounds, no guarding, no rebound, no hepatosplenomegaly, no masses. EXTREMITIES: 2+ pulses, warm, well-perfused, no edema. NEUROLOGICAL: Cranial nerves II through XII grossly intact. Normal speech, gait not observed. PSYCH: Normal mood, normal affect. SKIN: L Forearm- 3-4 puncture wounds with surrounding erythema. Erythema has been demarcated. Tenderness to palpation. +warmth. No crepitus. No lymphadenopathy along axilla Laboratory Results - last 24 hr 04/01/17 04/01/17 04/01/17 05:51 06:00 06:00 WBC 9.9 RBC 4.14 Hgb 12.3 Hct 35.6 MCV 86.0 MCH 29.6 MCHC 34.5 RDW 13.8 Plt Count 146 MPV 9.8 Sodium 137 Potassium 3.4 L Chloride 104 Carbon Dioxide 22 Anion Gap 11 BUN 7 D Creatinine 0.7 D POC Glucometer 199 Random Glucose 216 H D Calcium 8.0 L 04/01/17 12:04 WBC RBC Hgb Hct MCV MCH MCHC RDW Plt Count MPV Sodium Potassium Chloride Carbon Dioxide Anion Gap BUN Creatinine POC Glucometer 234 Random Glucose Calcium Active Medications Generic Name Dose Route Start Last Admin Trade Name Freq PRN Reason Stop Dose Admin Enalapril Maleate 20 mg 04/01/17 10:00 04/01/17 09:24 Vasotec - PO 20 mg DAILY MINDY Administration Ampicillin Sodium/Sulbactam 100 mls @ 200 mls/hr 04/01/17 14:30 Sodium 3 gm/ Sodium Chloride IVPB Q8H-IV MINDY Insulin Aspart 1 vial 04/01/17 07:00 04/01/17 13:04 Novolog Vial Sliding Scale - SQ 4 units ACHS MINDY Administration Protocol Morphine Sulfate 2 mg 04/01/17 16:04 Morphine Injection - IVPUSH Q4H PRN PAIN ASSESSMENT/PLAN: 47yo woman with HTN and poorly controlled NIDDM who presents with worsening L arm cellulitis from a cat bite despite being on Augmentin PO. #L arm cellulitis due to cat bite -improving -Switched Zosyn to Unasyn 3gm Q8 per ID -Morphine 2mg Q6h PRN for pain #Hypokalemia -kcl 40 meq PO #NIDDM -BGM ACHS -ISS ACHS #HTN -Continue home Enalapril 20mg PO #F/E/N -IVF 100 cc/hr -Electrolytes wnl -Diabetic and Na controlled diet #Prophylaxis -DVT risk - Heparin 5000 units sq bid -GI not indicated Visit type - Emergency Visit Emergency Visit: No - New Patient This patient is new to me today: Yes Date on this admission: 04/01/17 - Critical Care Critical Care patient: No
[2017-04-01] MEDS ORDERED: INSULIN (NOVOLOG) ASPART 100 UNITS/ML 10ML VIAL ONE ×2 (16:59→21:13)
[2017-04-01] MEDS: SODIUM CHLORIDE 1,000 ML IV SCH (17:06)
[2017-04-01] MEDS: AMPICILLIN NA/SULBACTAM NA 3 GM in SODIUM CHLORIDE 100 ML IVPB SCH ×2 (17:10→17:11)
[2017-04-01] MEDS ORDERED: ACETAMINOPHEN 325 MG TABLET (FP) PO ONE (18:27)
[2017-04-01] MEDS: HEPARIN NA (PORCINE) 5,000 UNITS/ML 1ML VIAL SQ SCH (21:35)
[2017-04-02] MEDS: AMPICILLIN NA/SULBACTAM NA 3 GM in SODIUM CHLORIDE 100 ML IVPB SCH ×3 (01:47→17:15)
[2017-04-02] MEDS: SODIUM CHLORIDE 1,000 ML IV SCH ×2 (03:53→16:19)
[2017-04-02] MEDS: INSULIN SLIDING SCALE (NOVOLOG) 1 VIAL SQ SCH ×4 (06:24→22:36)
[2017-04-02] MEDS ORDERED: PT OWN MED DRAWER 7, Y5N ONE ×3 (07:39→17:05)
[2017-04-02] MEDS ORDERED: INSULIN (NOVOLOG) ASPART 100 UNITS/ML 10ML VIAL ONE (07:40)
[2017-04-02 07:45] LABS: BASOPHIL 0.6 % (0-2.0); EOSINOPHIL 3.3 % (0-4.5); MCH 29.2 pg (25.7-33.7); MCHC 33.9 g/dl (32.0-36.0); MEAN CELL VOLUME 86.1 fl (80-96); MEAN PLT VOLUME 9.3 fl (7.5-11.1); NEUTROPHILS 63.4 % (42.8-82.8); PLATELET COUNT 143 K/MM3 (134-434); RDW 13.9 % (11.6-15.6); WHITE BLOOD COUNT 7.8 K/mm3 (4.0-10.0)
[2017-04-02] MEDS: morphine CARPU-JECT 4 MG/1 ML DISP.SYRIN IVPUSH PRN ×2 (07:57→16:14)
[2017-04-02 08:10] LABS: ANION GAP 7 (8-16); CALCIUM 8.1 mg/dL (8.5-10.1); CO2 22 mmol/L (21-32); CREATININE 0.6 mg/dL (0.55-1.02); GLUCOSE,RANDOM 182 mg/dL (74-106)
[2017-04-02] MEDS: ENALAPRIL MALEATE 10 MG TABLET (FP) PO SCH (10:47)
[2017-04-02] MEDS: HEPARIN NA (PORCINE) 5,000 UNITS/ML 1ML VIAL SQ SCH ×2 (10:47→22:28)
--- NOTE | 2017-04-02 13:56 | PN ---
Progress Note, Physician History of Present Illness: swelling better patient has one spot where erythema and swelling and now has fluctuation present tenderness also present at that site - Current Medication List Current Medications: Active Medications Enalapril Maleate (Vasotec -) 20 mg PO DAILY [facility] Last Admin: 04/02/17 10:47 Dose: 20 mg Heparin Sodium (Porcine) (Heparin -) 5,000 unit SQ BID [facility] Last Admin: 04/02/17 10:47 Dose: 5,000 unit Ampicillin Sodium/Sulbactam (Sodium 3 gm/ Sodium Chloride) 100 mls @ 200 mls/ hr IVPB Q8H-IV [facility] Last Admin: 04/02/17 10:47 Dose: 200 mls/hr Sodium Chloride (Normal Saline -) 1,000 mls @ 100 mls/hr IV ASDIR [facility] Last Admin: 04/02/17 03:53 Dose: 100 mls/hr Insulin Aspart (Novolog Vial Sliding Scale -) 1 vial SQ ACHS [facility] PRN Reason: Protocol Last Admin: 04/02/17 12:09 Dose: 2 units Morphine Sulfate (Morphine Injection -) 2 mg IVPUSH Q4H PRN PRN Reason: PAIN Last Admin: 04/02/17 07:57 Dose: 2 mg - Objective Vital Signs: Vital Signs Temperature 99.4 F 04/02/17 06:00 Pulse Rate 59 L 04/02/17 06:00 Respiratory Rate 20 04/02/17 06:00 Blood Pressure 135/70 04/02/17 06:00 O2 Sat by Pulse Oximetry (%) 97 04/01/17 21:00 Constitutional: Yes: Calm, Mild Distress Cardiovascular: Yes: Regular Rate and Rhythm Respiratory: Yes: Regular, CTA Bilaterally Gastrointestinal: Yes: Normal Bowel Sounds, Soft Musculoskeletal: Yes: Other Extremities: Yes: Other Integumentary: Yes: Erythema, Other Wound/Incision: Yes: Clean/Dry, Other (swelling and erythema at one site) Psychiatric: Yes: Alert, Oriented Labs: CBC, BMP 04/02/17 06:00 04/02/17 06:00 Assessment/Plan this patient with h/o of dm and who was bitten by the cat who is there domestic cat since last 2 yrs comes in with swelling and cellulitis of the left arm cellulitits of the left arm multiple bite holt plan continue abx will check how the wound looks tomorrow
--- NOTE | 2017-04-02 16:32 | PN ---
Physical Exam: SUBJECTIVE: Patient seen and examined No acute events overnight. Patient feels better this morning. OBJECTIVE: Vital Signs Period Temp Pulse Resp BP Sys/Stark Pulse Ox Last 24 Hr 98 F-100.3 F 59-69 18-20 122-155/68-90 97-97 GENERAL: The patient is awake, alert, and fully oriented, in no acute distress. HEAD: Normal with no signs of trauma. EYES: Extraocular movements intact, sclera anicteric, conjunctiva clear. No ptosis. ENT: Oropharynx clear without exudates, moist mucous membranes. NECK: Trachea midline, full range of motion, supple. LUNGS: Breath sounds equal, clear to auscultation bilaterally, no wheezes, no crackles, no accessory muscle use. HEART: Regular rate and rhythm, S1, S2 without murmur, rub or gallop. ABDOMEN: Soft, nontender, nondistended, normoactive bowel sounds, no guarding, no rebound, no hepatosplenomegaly, no masses. EXTREMITIES: 2+ pulses, warm, well-perfused, no edema. NEUROLOGICAL: Cranial nerves II through XII grossly intact. Normal speech, gait not observed. PSYCH: Normal mood, normal affect. SKIN: L Forearm- 3-4 puncture wounds with surrounding erythema. Erythema improved. Decreased tenderness to palpation. +warmth. No crepitus. No lymphadenopathy along axilla. Small area of fluctuance surrounding bite arsalan. Laboratory Results - last 24 hr 04/01/17 04/01/17 04/02/17 16:55 21:37 06:00 WBC 7.8 RBC 4.14 Hgb 12.1 Hct 35.6 MCV 86.1 MCH 29.2 MCHC 33.9 RDW 13.9 Plt Count 143 MPV 9.3 Neutrophils % 63.4 Lymphocytes % 26.2 Monocytes % 6.5 Eosinophils % 3.3 D Basophils % 0.6 Sodium Potassium Chloride Carbon Dioxide Anion Gap BUN Creatinine POC Glucometer 221 174 Random Glucose Calcium 04/02/17 04/02/17 04/02/17 06:00 06:24 12:05 WBC RBC Hgb Hct MCV MCH MCHC RDW Plt Count MPV Neutrophils % Lymphocytes % Monocytes % Eosinophils % Basophils % Sodium 138 Potassium 3.8 Chloride 109 H Carbon Dioxide 22 Anion Gap 7 L BUN 7 Creatinine 0.6 POC Glucometer 166 188 Random Glucose 182 H Calcium 8.1 L Active Medications Generic Name Dose Route Start Last Admin Trade Name Freq PRN Reason Stop Dose Admin Enalapril Maleate 20 mg 04/01/17 10:00 04/02/17 10:47 Vasotec - PO 20 mg DAILY MINDY Administration Heparin Sodium (Porcine) 5,000 unit 04/01/17 22:00 04/02/17 10:47 Heparin - SQ 5,000 unit BID MINDY Administration Ampicillin Sodium/Sulbactam 100 mls @ 200 mls/hr 04/01/17 14:30 04/02/17 10:47 Sodium 3 gm/ Sodium Chloride IVPB 200 mls/hr Q8H-IV MINDY Administration Sodium Chloride 1,000 mls @ 100 mls/hr 04/01/17 16:45 04/02/17 16:19 Normal Saline - IV 100 mls/hr ASDIR MINDY Administration Insulin Aspart 1 vial 04/01/17 07:00 04/02/17 12:09 Novolog Vial Sliding Scale - SQ 2 units ACHS MINDY Administration Protocol Morphine Sulfate 2 mg 04/01/17 16:04 04/02/17 16:14 Morphine Injection - IVPUSH 2 mg Q4H PRN Administration PAIN ASSESSMENT/PLAN: 47yo woman with HTN and poorly controlled NIDDM who presents with worsening L arm cellulitis from a cat bite despite outpatient Augmentin treatment. Problem List - Problems (1) Cellulitis of left upper extremity Assessment/Plan: -Improving, area of fluctuance in center -Continue Unasyn 3gm Q8 per ID -Morphine 2mg Q6h PRN for pain (2) Hypokalemia Assessment/Plan: -Resolved -Monitor electrolytes (3) HTN (hypertension) Assessment/Plan: -Continue home Enalapril 20mg PO Qualifiers: Hypertension type: essential hypertension (4) DM (diabetes mellitus) Assessment/Plan: -BGM ACHS -ISS ACHS (5) DVT prophylaxis Assessment/Plan: -DVT risk - Heparin 5000 units sq bid -GI not indicated Visit type - Emergency Visit Emergency Visit: No - New Patient This patient is new to me today: No - Critical Care Critical Care patient: No
--- NOTE | 2017-04-02 18:10 | PN ---
Teaching Attending Note Name of Resident: Jean Pierre Johnson ATTENDING PHYSICIAN STATEMENT I saw and evaluated the patient. I reviewed the resident's note and discussed the case with the resident. I agree with the resident's findings and plan as documented. SUBJECTIVE: No complaints. OBJECTIVE: Vital Signs Period Temp Pulse Resp BP Sys/Stark Pulse Ox Last 24 Hr 98 F-100.3 F 59-69 18-20 122-155/68-90 97-97 HEART: S1S2, RRR LUNGS: Clear ABDOMEN: Soft, non-tender, non-distended, normal BS EXTREMITIES: Decreased erythema of left forearm. Induration and fluctuance around bite. ASSESSMENT AND PLAN: This is a 47-year-old woman with a history of HTN, DM who presented to the ER after being bitten by her cat. 1. Left forearm cellulitis secondary to cat bite and scratches - Had temp 100.3 last evening - Continue Unasyn 2. Hypokalemia - Improved 3. HTN - Continue Vasotec 4. Type 2 diabetes mellitus - Continue Novolog sliding scale
[2017-04-03] MEDS ORDERED: PT OWN MED DRAWER 7, Y5N ONE (01:44)
[2017-04-03] MEDS: AMPICILLIN NA/SULBACTAM NA 3 GM in SODIUM CHLORIDE 100 ML IVPB SCH ×3 (02:13→17:40)
[2017-04-03] MEDS: SODIUM CHLORIDE 1,000 ML IV SCH ×3 (02:13→17:35)
[2017-04-03] MEDS: INSULIN SLIDING SCALE (NOVOLOG) 1 VIAL SQ SCH ×4 (06:33→22:39)
[2017-04-03 07:43] LABS: BASOPHIL 0.4 % (0-2.0); EOSINOPHIL 3.3 % (0-4.5); MCHC 33.6 g/dl (32.0-36.0); MEAN CELL VOLUME 86.3 fl (80-96); MEAN PLT VOLUME 9.7 fl (7.5-11.1); NEUTROPHILS 57.7 % (42.8-82.8); PLATELET COUNT 153 K/MM3 (134-434); RDW 14.4 % (11.6-15.6); WHITE BLOOD COUNT 7.1 K/mm3 (4.0-10.0)
[2017-04-03 08:11] LABS: ANION GAP 7 (8-16); CALCIUM 8.3 mg/dL (8.5-10.1); CO2 22 mmol/L (21-32); GLUCOSE,RANDOM 168 mg/dL (74-106)
[2017-04-03 08:12] LABS: CREATININE 0.6 mg/dL (0.55-1.02)
[2017-04-03] MEDS: ENALAPRIL MALEATE 10 MG TABLET (FP) PO SCH (11:11)
[2017-04-03] MEDS: HEPARIN NA (PORCINE) 5,000 UNITS/ML 1ML VIAL SQ SCH ×2 (11:11→22:29)
[2017-04-03] MEDS: morphine CARPU-JECT 4 MG/1 ML DISP.SYRIN IVPUSH PRN ×2 (11:16→22:29)
--- NOTE | 2017-04-03 14:37 | PN ---
Progress Note, Physician History of Present Illness: patient swelling ruptured with pus coming out patient seen by surgery plan to do i and d - Current Medication List Current Medications: Active Medications Enalapril Maleate (Vasotec -) 20 mg PO DAILY [facility] Last Admin: 04/03/17 11:11 Dose: 20 mg Heparin Sodium (Porcine) (Heparin -) 5,000 unit SQ BID [facility] Last Admin: 04/03/17 11:11 Dose: 5,000 unit Ampicillin Sodium/Sulbactam (Sodium 3 gm/ Sodium Chloride) 100 mls @ 200 mls/ hr IVPB Q8H-IV [facility] Last Admin: 04/03/17 11:08 Dose: 200 mls/hr Sodium Chloride (Normal Saline -) 1,000 mls @ 100 mls/hr IV ASDIR [facility] Last Admin: 04/03/17 02:13 Dose: 100 mls/hr Insulin Aspart (Novolog Vial Sliding Scale -) 1 vial SQ ACHS [facility] PRN Reason: Protocol Last Admin: 04/03/17 11:19 Dose: 2 units Morphine Sulfate (Morphine Injection -) 2 mg IVPUSH Q4H PRN PRN Reason: PAIN Last Admin: 04/03/17 11:16 Dose: 2 mg - Objective Vital Signs: Vital Signs Temperature 98.6 F 04/03/17 10:00 Pulse Rate 60 04/03/17 10:00 Respiratory Rate 20 04/03/17 10:00 Blood Pressure 132/70 04/03/17 10:00 O2 Sat by Pulse Oximetry (%) 97 04/03/17 09:00 Constitutional: Yes: No Distress, Calm HENT: Yes: Atraumatic, Normocephalic Cardiovascular: Yes: Regular Rate and Rhythm Respiratory: Yes: Regular, CTA Bilaterally Gastrointestinal: Yes: Normal Bowel Sounds, Soft Musculoskeletal: Yes: Other Extremities: Yes: Other (swelling decreased) Integumentary: Yes: Erythema, Skin Tear, Other Wound/Incision: Yes: Open to air, Draining Neurological: Yes: Alert, Oriented Psychiatric: Yes: Alert Labs: CBC, BMP 04/03/17 05:35 04/03/17 05:35 Assessment/Plan this patient with h/o of dm and who was bitten by the cat who is there domestic cat since last 2 yrs comes in with swelling and cellulitis of the left arm cellulitits of the left arm multiple bite holt plan continue abx get a mri of the hand await for surgery to drain rest as per primary
--- NOTE | 2017-04-03 15:18 | PN ---
Physical Exam: SUBJECTIVE: Patient seen and examined No acute events overnight. Patient feels much improved this morning. Pain is better. OBJECTIVE: Vital Signs Period Temp Pulse Resp BP Sys/Stark Pulse Ox Last 24 Hr 98.6 F-99.3 F 55-68 18-20 132-147/70-92 97-97 GENERAL: The patient is awake, alert, and fully oriented, in no acute distress. HEAD: Normal with no signs of trauma. EYES: Extraocular movements intact, sclera anicteric, conjunctiva clear. No ptosis. ENT: Oropharynx clear without exudates, moist mucous membranes. NECK: Trachea midline, full range of motion, supple. LUNGS: Breath sounds equal, clear to auscultation bilaterally, no wheezes, no crackles, no accessory muscle use. HEART: Regular rate and rhythm, S1, S2 without murmur, rub or gallop. ABDOMEN: Soft, nontender, nondistended, normoactive bowel sounds, no guarding, no rebound, no hepatosplenomegaly, no masses. EXTREMITIES: 2+ pulses, warm, well-perfused, no edema. NEUROLOGICAL: Cranial nerves II through XII grossly intact. Normal speech, gait not observed. PSYCH: Normal mood, normal affect. SKIN: L Forearm- 3-4 puncture wounds with surrounding erythema. Erythema improved. Decreased tenderness to palpation. +warmth. No crepitus. No lymphadenopathy along axilla. Small area of fluctuance surrounding bite arsalan. Laboratory Results - last 24 hr 04/02/17 04/02/17 04/03/17 16:59 22:29 05:35 WBC 7.1 RBC 4.22 Hgb 12.2 Hct 36.5 MCV 86.3 MCH 29.0 MCHC 33.6 RDW 14.4 Plt Count 153 MPV 9.7 Neutrophils % 57.7 Lymphocytes % 31.3 Monocytes % 7.3 Eosinophils % 3.3 Basophils % 0.4 Sodium Potassium Chloride Carbon Dioxide Anion Gap BUN Creatinine POC Glucometer 205 239 Random Glucose Hemoglobin A1c % Calcium 04/03/17 04/03/17 04/03/17 05:35 05:35 06:33 WBC RBC Hgb Hct MCV MCH MCHC RDW Plt Count MPV Neutrophils % Lymphocytes % Monocytes % Eosinophils % Basophils % Sodium 139 Potassium 3.8 Chloride 110 H Carbon Dioxide 22 Anion Gap 7 L BUN 6 L Creatinine 0.6 POC Glucometer 155 Random Glucose 168 H Hemoglobin A1c % 8.9 H Calcium 8.3 L 04/03/17 11:18 WBC RBC Hgb Hct MCV MCH MCHC RDW Plt Count MPV Neutrophils % Lymphocytes % Monocytes % Eosinophils % Basophils % Sodium Potassium Chloride Carbon Dioxide Anion Gap BUN Creatinine POC Glucometer 199 Random Glucose Hemoglobin A1c % Calcium Active Medications Generic Name Dose Route Start Last Admin Trade Name Freq PRN Reason Stop Dose Admin Enalapril Maleate 20 mg 04/01/17 10:00 04/03/17 11:11 Vasotec - PO 20 mg DAILY MINDY Administration Heparin Sodium (Porcine) 5,000 unit 04/01/17 22:00 04/03/17 11:11 Heparin - SQ 5,000 unit BID MINDY Administration Ampicillin Sodium/Sulbactam 100 mls @ 200 mls/hr 04/01/17 14:30 04/03/17 11:08 Sodium 3 gm/ Sodium Chloride IVPB 200 mls/hr Q8H-IV MINDY Administration Sodium Chloride 1,000 mls @ 100 mls/hr 04/01/17 16:45 04/03/17 02:13 Normal Saline - IV 100 mls/hr ASDIR MINDY Administration Insulin Aspart 1 vial 04/01/17 07:00 04/03/17 11:19 Novolog Vial Sliding Scale - SQ 2 units ACHS MINDY Administration Protocol Morphine Sulfate 2 mg 04/01/17 16:04 04/03/17 11:16 Morphine Injection - IVPUSH 2 mg Q4H PRN Administration PAIN ASSESSMENT/PLAN: 47yo woman with HTN and poorly controlled NIDDM who presents with worsening L arm cellulitis from a cat bite despite outpatient Augmentin treatment. Problem List - Problems (1) Cellulitis of left upper extremity Assessment/Plan: -Improving, area of fluctuance in center. -MRI of arm pending -Surgery consulted. Will possibly need I&D. -Continue Unasyn 3gm Q8 per ID -Morphine 2mg Q6h PRN for pain (2) Hypokalemia Assessment/Plan: -Resolved -Monitor electrolytes (3) HTN (hypertension) Assessment/Plan: Stable -Continue home Enalapril 20mg PO Qualifiers: Hypertension type: essential hypertension (4) DM (diabetes mellitus) Assessment/Plan: A1c- 8.9 -Patient previously on metformin, but did not citrus picker meds. Will discuss restarting outpatient and setting up pt with PCP -M ACHS -ISS ACHS (5) DVT prophylaxis Assessment/Plan: -DVT risk - Heparin 5000 units sq bid -GI not indicated Visit type - Emergency Visit Emergency Visit: No - New Patient This patient is new to me today: No - Critical Care Critical Care patient: No
[2017-04-03] MEDS ORDERED: LIDOCAINE 1%/EPI 1:100000 (20 ML MULTI DOSE VIAL) INF ONE (15:55)
[2017-04-03] MEDS ORDERED: LIDOCAINE HCL 1% PRESERVATIVE FREE - 30ML VIAL INF ONE (16:15)
--- NOTE | 2017-04-03 17:10 | PN ---
Teaching Attending Note Name of Resident: Jean Pierre Johnson ATTENDING PHYSICIAN STATEMENT I saw and evaluated the patient. I reviewed the resident's note and discussed the case with the resident. I agree with the resident's findings and plan as documented. SUBJECTIVE: No complaints. OBJECTIVE: Vital Signs Period Temp Pulse Resp BP Sys/Stark Pulse Ox Last 24 Hr 98.6 F-99.3 F 55-68 18-20 132-147/70-92 97-97 HEART: S1S2, RRR LUNGS: Clear ABDOMEN: Soft, non-tender, non-distended, normal BS EXTREMITIES: Decreased erythema of left forearm. Induration and fluctuance around bite. ASSESSMENT AND PLAN: This is a 47-year-old woman with a history of HTN, DM who presented to the ER after being bitten by her cat. 1. Left forearm cellulitis and possible abscess secondary to cat bite and scratches - Afebrile - Continue Unasyn - MRI ordered 2. Hypokalemia - Improved 3. HTN - Continue Vasotec 4. Type 2 diabetes mellitus - Continue Novolog sliding scale
--- NOTE | 2017-04-03 17:48 | CONSULT ---
Consult Consult Specialty:: General Surgery Referred by:: Dr. Hickman Reason for Consultation:: L forearm abscess after cat bite - History of Present Illness Chief Complaint: L forearm pain, swelling, redness History of Present Illness: 47yo F with HTN, DM2 poorly controlled admitted to hospital 2d ago after experiencing cat bites to left forearm on Saturday and worsening pain and swelling despite outpatient Augmentin and a tetanus shot after the incident. She is on IV antibiotics in the hospital, and has had improvement of the left forearm cellulitis, but now has an area of tender, warm, reddened swelling at the distal-most bite arsalan with some serous fluid exudate, suspicious for development of underlying abscess. She is agreeable to incision and drainage, for which surgery is consulted to evaluate. - History Source History Provided By: Patient, Medical Record Limitations to Obtaining History: No Limitations - Past Medical History Cardio/Vascular: Yes: HTN ...LMP: 03/19/17 ...: No Endocrine: Yes: Diabetes Mellitus - Alcohol/Substance Use Hx Alcohol Use: No - Smoking History Smoking history: Never smoked Have you smoked in the past 12 months: No Home Medications - Allergies Allergies/Adverse Reactions: Allergies Allergy/AdvReac Type Severity Reaction Status Date / Time No Known Allergies Allergy Verified 03/31/17 20:23 - Home Medications Home Medications: Ambulatory Orders Enalapril Maleate [Vasotec] 20 mg PO DAILY #30 tablet 02/26/17 Family Disease History - Family Disease History Family History: Unremarkable Review of Systems - Review of Systems Constitutional: reports: Fever. denies: Chills Cardiovascular: denies: Chest Pain, Palpitations Respiratory: denies: Cough, SOB Musculoskeletal: reports: Extremity Pain. denies: Decreased ROM, Joint Swelling Integumentary: reports: Erythema, Lump, Wound (x3 left forearm - cat bites) Neurological: denies: Dizziness, Headache Physical Exam Vital Signs: Vital Signs Temperature 98.6 F 04/03/17 10:00 Pulse Rate 60 04/03/17 10:00 Respiratory Rate 20 04/03/17 10:00 Blood Pressure 132/70 04/03/17 10:00 O2 Sat by Pulse Oximetry (%) 97 04/03/17 09:00 Constitutional: Yes: Well Nourished, No Distress, Calm Eyes: Yes: Conjunctiva Clear, EOM Intact HENT: Yes: Atraumatic, Normocephalic Musculoskeletal: No: Joint Stiffness, Joint Swelling Extremities: Yes: Erythema (left forearm, at sites of cat bites x3, mild, local - distal most bite site at radial aspect with scab, mild swelling, redness, no danny fluctuance but some firmness, + serous exudate, + tenderness; other two bite sites are mildly tender, scabbed, without significant swelling or any drainage). No: Cool Edema: No Peripheral Pulses WNL: Yes Integumentary: Yes: Erythema, Other (see extremity exam) Wound/Incision: Yes: Open to air (x3), Other (see extremity exam) Neurological: Yes: Alert, Oriented ...Motor Strength: LUE (normal flexion and extension of hand/fingers, rotation of wrist) Labs: CBC, BMP 04/03/17 05:35 04/03/17 05:35 initial wbc was 11 Imaging - Results MRI: Pending Problem List - Problems (1) Cat bite Code(s): W55.01XA - BITTEN BY CAT, INITIAL ENCOUNTER Qualifiers: Encounter type: sequela Qualified Code(s): W55.01XS - Bitten by cat , sequela (2) Cellulitis of left upper extremity Assessment/Plan: possible abscess development at site of distal-most cat bite cellulitis resolving per nursing and ID on antibiotics discussed with patient R/B/A of incision and drainage of left forearm abscess including but not limited to bleeding and infection patient agrees to procedure and signed informed consent for same I&D done at bedside with no purulence encountered, culture taken of small subcutaneous pocket - see separate procedure note packed and dressed will follow up tomorrow for dressing change encourage elevation of left forearm over heart level tonight pain meds prn - encouraged po meds (ordered) Code(s): L03.114 - CELLULITIS OF LEFT UPPER LIMB (3) DM (diabetes mellitus) Code(s): E11.9 - TYPE 2 DIABETES MELLITUS WITHOUT COMPLICATIONS Qualifiers: Diabetes mellitus type: type 2 Diabetes mellitus complication status: with skin complications Diabetes mellitus complication detail: with other skin complication Diabetes mellitus custodial insulin use: without custodial use Qualified Code(s): E11.628 - Type 2 diabetes mellitus with other skin complications (4) HTN (hypertension) Code(s): I10 - ESSENTIAL (PRIMARY) HYPERTENSION Qualifiers: Hypertension type: essential hypertension Qualified Code(s): I10 - Essential (primary) hypertension
--- NOTE | 2017-04-03 18:08 | PROC ---
Incision and Drainage Indication/Location: left forearm ?abscess at site of cat bite Risks and Benefits Explained: Yes Consent on Chart: Yes Betadine cleansed: Yes Anesthesia: 1% Lidocaine w/ Epi Blade Size: 15 Drainage: none/minor bleeding, stopped with pressure Irrigated with Normal Saline: No (irrigated with local anesthetic) Iodinated Packin/4 in Sterile Dressing Applied: Yes - Remarks Remarks: scab from bite excised from skin with scalpel culture taken of subcutaneous wound pocket medially, but no pus or drainage encountered
[2017-04-03] MEDS: ACETAMINOPHEN 325 MG TABLET (FP) PO PRN (19:08)
[2017-04-04] MEDS: AMPICILLIN NA/SULBACTAM NA 3 GM in SODIUM CHLORIDE 100 ML IVPB SCH ×3 (02:24→18:29)
[2017-04-04] MEDS: morphine CARPU-JECT 4 MG/1 ML DISP.SYRIN IVPUSH PRN ×3 (06:25→21:09)
[2017-04-04] MEDS: INSULIN SLIDING SCALE (NOVOLOG) 1 VIAL SQ SCH ×4 (06:27→23:14)
[2017-04-04] MEDS: SODIUM CHLORIDE 1,000 ML IV SCH ×2 (06:33→20:53)
[2017-04-04 07:10] LABS: ANION GAP 9 (8-16); CALCIUM 8.3 mg/dL (8.5-10.1); CO2 23 mmol/L (21-32); CREATININE 0.6 mg/dL (0.55-1.02); GLUCOSE,RANDOM 147 mg/dL (74-106)
[2017-04-04 07:32] LABS: BASOPHIL 0.4 % (0-2.0); EOSINOPHIL 3.4 % (0-4.5); MCH 28.7 pg (25.7-33.7); MCHC 33.6 g/dl (32.0-36.0); MEAN CELL VOLUME 85.4 fl (80-96); MEAN PLT VOLUME 9.5 fl (7.5-11.1); PLATELET COUNT 175 K/MM3 (134-434); RDW 13.8 % (11.6-15.6); WHITE BLOOD COUNT 6.3 K/mm3 (4.0-10.0)
[2017-04-04] MEDS ORDERED: PT OWN MED DRAWER 7, Y5N ONE ×2 (09:26→18:09)
[2017-04-04] MEDS: ENALAPRIL MALEATE 10 MG TABLET (FP) PO SCH (09:29)
[2017-04-04] MEDS: HEPARIN NA (PORCINE) 5,000 UNITS/ML 1ML VIAL SQ SCH ×2 (09:29→23:04)
[2017-04-04] MEDS: ACETAMINOPHEN 325 MG TABLET (FP) PO PRN ×2 (09:30→18:06)
--- NOTE | 2017-04-04 09:35 | PN ---
Progress Note (short form) - Note Progress Note: Diabetic pt s/p I&D of left forearm swelling yesterday. GS and Cx pending, but no pus or drainage encountered. Wound was packed with 1/4" iodoform. Some bloodstaining on dressing overnight necessitating gauze change. Pt had pain med about 3 hrs ago. Minimal pain now. Trying to elevate arm. MRI was done after procedure yesterday - showed possible collection, which is more likely packing of wound. Seen and examined in bed. Vital Signs Period Temp Pulse Resp BP Sys/Stark Pulse Ox Last 24 Hr 98.2 F-99.9 F 60-68 18-20 132-154/70-79 97 PE: L forearm with 3 bite holt, 2 scabs with focal/mild erythema, cellulitis resolving with antibiotics no direct tenderness over these 2 distal most bite now s/p I&D - dressing removed, packing removed with some saline wound is clean, pink, small opening where scab was removed at procedure not repacked covered with gauze and large bandaid CBC, BMP 04/04/17 06:15 04/04/17 06:15 A/P: cat bites left forearm with cellulitis responding to antibiotics s/p I&D of distal most bite with no pus culture pending encourage tylenol prn for pain, minimize narcotics wound does not need repacking keep covered daily with gauze and tape or large bandaid pt is ok to shower at home with dressing off and recover no swimming until wound is healed gave her my card to call for follow up appt on a Saturday in 1-2 weeks see discharge plan for instructions Thank you for the opportunity to participate in the care of this patient. 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
--- NOTE | 2017-04-04 13:14 | PN ---
Teaching Attending Note Name of Resident: Jean Pierre Johnson ATTENDING PHYSICIAN STATEMENT I saw and evaluated the patient. I reviewed the resident's note and discussed the case with the resident. I agree with the resident's findings and plan as documented. SUBJECTIVE: MRI of left forearm showed diffuse soft tissue swelling, 2 cm subcutaneous fluid collection anterior to lower third of ulna, no evidence of osteomyelitis of radius or ulna. She was seen by Dr. Booth and I&D was done but there was no drainage. She complains of pain in her left forearm. OBJECTIVE: Vital Signs Period Temp Pulse Resp BP Sys/Stark Pulse Ox Last 24 Hr 98.2 F-99.9 F 60-68 18-20 146-154/77-79 97-100 HEART: S1S2, RRR LUNGS: Clear ABDOMEN: Soft, non-tender, non-distended, normal BS EXTREMITIES: Decreased erythema of left forearm. Induration and fluctuance around bite. ASSESSMENT AND PLAN: This is a 47-year-old woman with a history of HTN, DM who presented to the ER after being bitten by her cat. 1. Left forearm cellulitis and possible abscess secondary to cat bite and scratches - Afebrile - Continue Unasyn - ID follow-up for change to oral - s/p incision and drainage 04/03 - no drainage, fluid collection seen on MRI thought to be packing 2. Hypokalemia - Improved 3. HTN - Continue Vasotec 4. Type 2 diabetes mellitus - Continue Novolog sliding scale
--- NOTE | 2017-04-04 13:24 | PN ---
Progress Note, Physician History of Present Illness: doing well no issues wound healing well after opening - Current Medication List Current Medications: Active Medications Acetaminophen (Tylenol -) 650 mg PO Q6H PRN PRN Reason: FEVER OR PAIN Last Admin: 04/04/17 09:30 Dose: 650 mg Enalapril Maleate (Vasotec -) 20 mg PO DAILY [facility] Last Admin: 04/04/17 09:29 Dose: 20 mg Heparin Sodium (Porcine) (Heparin -) 5,000 unit SQ BID [facility] Last Admin: 04/04/17 09:29 Dose: 5,000 unit Ampicillin Sodium/Sulbactam (Sodium 3 gm/ Sodium Chloride) 100 mls @ 200 mls/ hr IVPB Q8H-IV [facility] Last Admin: 04/04/17 09:28 Dose: 200 mls/hr Sodium Chloride (Normal Saline -) 1,000 mls @ 100 mls/hr IV ASDIR [facility] Last Admin: 04/04/17 06:33 Dose: 100 mls/hr Insulin Aspart (Novolog Vial Sliding Scale -) 1 vial SQ ACHS [facility] PRN Reason: Protocol Last Admin: 04/04/17 12:45 Dose: 2 units Morphine Sulfate (Morphine Injection -) 2 mg IVPUSH Q4H PRN PRN Reason: PAIN Last Admin: 04/04/17 06:25 Dose: 2 mg - Objective Vital Signs: Vital Signs Temperature 99.9 F H 04/04/17 06:52 Pulse Rate 60 04/04/17 09:30 Respiratory Rate 18 04/04/17 09:30 Blood Pressure 148/78 04/04/17 09:30 O2 Sat by Pulse Oximetry (%) 100 04/04/17 09:00 Constitutional: Yes: No Distress, Calm Neck: Yes: Supple, Trachea Midline Cardiovascular: Yes: Regular Rate and Rhythm Respiratory: Yes: Regular, CTA Bilaterally Gastrointestinal: Yes: Normal Bowel Sounds, Soft Musculoskeletal: Yes: Other Extremities: Yes: Other Wound/Incision: Yes: Dressing Dry and Intact Neurological: Yes: Alert, Oriented Psychiatric: Yes: Alert, Oriented Labs: CBC, BMP 04/04/17 06:15 04/04/17 06:15 Assessment/Plan this patient with h/o of dm and who was bitten by the cat who is there domestic cat since last 2 yrs comes in with swelling and cellulitis of the left arm cellulitits of the left arm multiple bite holt plan continue abx await for cx report
--- NOTE | 2017-04-04 16:51 | PN ---
Physical Exam: SUBJECTIVE: Patient seen and examined No acute events overnight. Patient is in pain today after I&D last night. MRI done yesterday showed diffuse swelling, fluid collection (2cm), and no evidence of osteomyelitis. I&D done yesterday by Dr. Booth, with no purulent drainage. OBJECTIVE: Vital Signs Period Temp Pulse Resp BP Sys/Stark Pulse Ox Last 24 Hr 98.2 F-99.9 F 60-68 17-20 137-154/77-79 97-100 GENERAL: The patient is awake, alert, and fully oriented, in no acute distress. HEAD: Normal with no signs of trauma. EYES: Extraocular movements intact, sclera anicteric, conjunctiva clear. No ptosis. ENT: Oropharynx clear without exudates, moist mucous membranes. NECK: Trachea midline, full range of motion, supple. LUNGS: Breath sounds equal, clear to auscultation bilaterally, no wheezes, no crackles, no accessory muscle use. HEART: Regular rate and rhythm, S1, S2 without murmur, rub or gallop. ABDOMEN: Soft, nontender, nondistended, normoactive bowel sounds, no guarding, no rebound, no hepatosplenomegaly, no masses. EXTREMITIES: 2+ pulses, warm, well-perfused, no edema. NEUROLOGICAL: Cranial nerves II through XII grossly intact. Normal speech, gait not observed. PSYCH: Normal mood, normal affect. SKIN: L Forearm- 3-4 puncture wounds with surrounding erythema. Decreased tenderness to palpation. +warmth. No crepitus. No lymphadenopathy along axilla. I&D site packed and covered. Laboratory Results - last 24 hr 04/03/17 04/03/17 04/04/17 17:38 22:38 06:09 WBC RBC Hgb Hct MCV MCH MCHC RDW Plt Count MPV Neutrophils % Lymphocytes % Monocytes % Eosinophils % Basophils % Sodium Potassium Chloride Carbon Dioxide Anion Gap BUN Creatinine POC Glucometer 143 219 166 Random Glucose Calcium 04/04/17 04/04/17 04/04/17 06:15 06:15 12:04 WBC 6.3 RBC 4.18 Hgb 12.0 Hct 35.7 MCV 85.4 MCH 28.7 MCHC 33.6 RDW 13.8 Plt Count 175 MPV 9.5 Neutrophils % 50.0 Lymphocytes % 39.5 D Monocytes % 6.7 Eosinophils % 3.4 Basophils % 0.4 Sodium 140 Potassium 3.8 Chloride 108 H Carbon Dioxide 23 Anion Gap 9 BUN 8 D Creatinine 0.6 POC Glucometer 169 Random Glucose 147 H Calcium 8.3 L Active Medications Generic Name Dose Route Start Last Admin Trade Name Freq PRN Reason Stop Dose Admin Acetaminophen 650 mg 04/03/17 18:11 04/04/17 09:30 Tylenol - PO 650 mg Q6H PRN Administration FEVER OR PAIN Enalapril Maleate 20 mg 04/01/17 10:00 04/04/17 09:29 Vasotec - PO 20 mg DAILY MINDY Administration Heparin Sodium (Porcine) 5,000 unit 04/01/17 22:00 04/04/17 09:29 Heparin - SQ 5,000 unit BID MINDY Administration Ampicillin Sodium/Sulbactam 100 mls @ 200 mls/hr 04/01/17 14:30 04/04/17 09:28 Sodium 3 gm/ Sodium Chloride IVPB 200 mls/hr Q8H-IV MINDY Administration Sodium Chloride 1,000 mls @ 100 mls/hr 04/01/17 16:45 04/04/17 06:33 Normal Saline - IV 100 mls/hr ASDIR MINDY Administration Insulin Aspart 1 vial 04/01/17 07:00 04/04/17 12:45 Novolog Vial Sliding Scale - SQ 2 units ACHS MINDY Administration Protocol Insulin Detemir 10 units 04/04/17 22:00 Levemir Vial SQ HS MINDY Morphine Sulfate 2 mg 04/01/17 16:04 04/04/17 14:43 Morphine Injection - IVPUSH 2 mg Q4H PRN Administration PAIN ASSESSMENT/PLAN: 47yo woman with HTN and poorly controlled NIDDM who presents with worsening L arm cellulitis from a cat bite despite outpatient Augmentin treatment. 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 Will discuss restarting outpatient and setting up pt with PCP -Levemir 10 units hs -BGM ACHS -ISS ACHS (5) DVT prophylaxis Assessment/Plan: -DVT risk - Heparin 5000 units sq bid -GI not indicated Visit type - Emergency Visit Emergency Visit: No - New Patient This patient is new to me today: No - Critical Care Critical Care patient: No
[2017-04-04] MEDS ORDERED: INSULIN DETEMIR 100 UNITS/ML MDV SQ SCH (22:00)
[2017-04-05] MEDS: ACETAMINOPHEN 325 MG TABLET (FP) PO PRN ×2 (00:07→10:07)
[2017-04-05] MEDS: AMPICILLIN NA/SULBACTAM NA 3 GM in SODIUM CHLORIDE 100 ML IVPB SCH ×3 (01:52→17:50)
[2017-04-05] MEDS: INSULIN SLIDING SCALE (NOVOLOG) 1 VIAL SQ SCH ×3 (06:31→17:46)
[2017-04-05 08:11] LABS: BASOPHIL 0.6 % (0-2.0); EOSINOPHIL 5.3 % (0-4.5); MCH 28.7 pg (25.7-33.7); MCHC 33.5 g/dl (32.0-36.0); MEAN CELL VOLUME 85.8 fl (80-96); MEAN PLT VOLUME 9.6 fl (7.5-11.1); NEUTROPHILS 52.4 % (42.8-82.8); PLATELET COUNT 179 K/MM3 (134-434); WHITE BLOOD COUNT 6.3 K/mm3 (4.0-10.0)
[2017-04-05] MEDS ORDERED: morphine CARPU-JECT 2 MG/1 ML DISP.SYRIN IVPUSH PRN (08:12)
[2017-04-05 08:49] LABS: ANION GAP 9 (8-16); CALCIUM 8.5 mg/dL (8.5-10.1); CO2 23 mmol/L (21-32); GLUCOSE,RANDOM 142 mg/dL (74-106)
[2017-04-05 08:50] LABS: CREATININE 0.6 mg/dL (0.55-1.02)
[2017-04-05] MEDS ORDERED: PT OWN MED DRAWER 7, Y5N ONE (09:20)
[2017-04-05] MEDS: HEPARIN NA (PORCINE) 5,000 UNITS/ML 1ML VIAL SQ SCH (09:35)
[2017-04-05] MEDS: ENALAPRIL MALEATE 10 MG TABLET (FP) PO SCH (09:35)
--- NOTE | 2017-04-05 14:44 | PN ---
Progress Note (short form) - Note Progress Note: Diabetic pt POD2 s/p I&D of left forearm swelling. GS and Cx negative to date. Seen and examined in bed. Wound dressed with 2x2 gauze and bandaid yesterday. Feeling well today, no significant pain. Vital Signs Period Temp Pulse Resp BP Sys/Stark Pulse Ox Last 24 Hr 99.1 F-99.7 F 54-66 17-18 130-140/71-87 100 PE: L forearm with 3 bite holt, 2 scabs with focal/mild erythema, cellulitis resolving with antibiotics no direct tenderness over these 2 distal most bite s/p I&D - dressing removed wound is clean, pink, small opening where scab was removed at procedure wound is sealing down - no undermining, fluctuance or tenderness covered small wound opening with folded 2x2 gauze and paper tape CBC, BMP 04/05/17 06:58 04/05/17 06:58 A/P: cat bites left forearm with cellulitis responding to antibiotics POD2 s/p I&D of distal most bite with no pus culture neg to date tylenol prn wound clean pt is ok to shower at home with dressing off and keep covered daily with gauze and tape or large bandaid no swimming until wound is healed gave her my card to call for follow up appt on a Saturday in 1-2 weeks [phone] see discharge plan for instructions Thank you for the opportunity to participate in the care of this patient. 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
--- NOTE | 2017-04-05 15:05 | PN ---
Teaching Attending Note Name of Resident: Jean Pierre Johnson ATTENDING PHYSICIAN STATEMENT I saw and evaluated the patient. I reviewed the resident's note and discussed the case with the resident. I agree with the resident's findings and plan as documented. SUBJECTIVE: No complaints. OBJECTIVE: Vital Signs Period Temp Pulse Resp BP Sys/Stark Pulse Ox Last 24 Hr 99.1 F-99.7 F 54-66 17-18 130-140/71-87 100 HEART: S1S2, RRR LUNGS: Clear ABDOMEN: Soft, non-tender, non-distended, normal BS EXTREMITIES: Decreased erythema of left forearm. Wound clean with no drainage. ASSESSMENT AND PLAN: This is a 47-year-old woman with a history of HTN, DM who presented to the ER after being bitten by her cat. 1. Left forearm cellulitis secondary to cat bite and scratches - Improving - s/p incision and drainage 04/03 - no drainage; fluid collection seen on MRI thought to be packing - Discharge on Augmentin 2. Hypokalemia - Improved 3. HTN - Continue Vasotec 4. Type 2 diabetes mellitus - Levemir started
[2017-04-05 15:27] VITALS: BP 149/85; PULSE 56; TEMP 98.3
--- NOTE | 2017-04-05 15:47 | PN ---
Progress Note, Physician History of Present Illness: doing well no issues doing well - Current Medication List Current Medications: Active Medications Acetaminophen (Tylenol -) 650 mg PO Q6H PRN PRN Reason: FEVER OR PAIN Last Admin: 04/05/17 10:07 Dose: 650 mg Enalapril Maleate (Vasotec -) 20 mg PO DAILY [facility] Last Admin: 04/05/17 09:35 Dose: 20 mg Heparin Sodium (Porcine) (Heparin -) 5,000 unit SQ BID [facility] Last Admin: 04/05/17 09:35 Dose: 5,000 unit Ampicillin Sodium/Sulbactam (Sodium 3 gm/ Sodium Chloride) 100 mls @ 200 mls/ hr IVPB Q8H-IV MINDY Last Admin: 04/05/17 09:35 Dose: 200 mls/hr Insulin Aspart (Novolog Vial Sliding Scale -) 1 vial SQ ACHS MINDY PRN Reason: Protocol Last Admin: 04/05/17 11:55 Dose: 2 units Insulin Detemir (Levemir Vial) 10 units SQ HS [facility] Last Admin: 04/04/17 23:12 Dose: 10 units Morphine Sulfate (Morphine Injection -) 1 mg IVPUSH Q4H PRN PRN Reason: PAIN - Objective Vital Signs: Vital Signs Temperature 98.3 F 04/05/17 15:24 Pulse Rate 56 L 04/05/17 15:24 Respiratory Rate 20 04/05/17 15:24 Blood Pressure 149/85 04/05/17 15:24 O2 Sat by Pulse Oximetry (%) 100 04/04/17 21:00 Constitutional: Yes: No Distress, Calm Cardiovascular: Yes: Regular Rate and Rhythm Respiratory: Yes: Regular, CTA Bilaterally Gastrointestinal: Yes: Normal Bowel Sounds, Soft Musculoskeletal: Yes: WNL Extremities: Yes: WNL Wound/Incision: Yes: Clean/Dry, Other Neurological: Yes: Alert, Oriented Psychiatric: Yes: Alert, Oriented Labs: CBC, BMP 04/05/17 06:58 04/05/17 06:58 Assessment/Plan this patient with h/o of dm and who was bitten by the cat who is there domestic cat since last 2 yrs comes in with swelling and cellulitis of the left arm cellulitits of the left arm multiple bite holt plan all results are seen patient can go home on augmentin 875 mg bid for 5 days
--- NOTE | 2017-04-05 17:04 | DS ---
Physical Exam: LABS Laboratory Results - last 24 hr Selected Entries 03/31/17 04/01/17 04/02/17 20:20 18:40 06:00 Temperature 98.8 F 100.3 F H Pulse Rate 76 Respiratory 18 20 Rate Blood Pressure 145/68 04/02/17 04/02/17 04/03/17 09:00 14:44 06:35 Temperature 98 F Pulse Rate 60 Respiratory Rate Blood Pressure 141/75 04/03/17 04/03/17 04/04/17 10:00 18:53 15:06 Temperature 98.2 F Pulse Rate 60 Respiratory Rate Blood Pressure 137/78 04/05/17 04/05/17 04/05/17 02:00 10:00 15:24 Temperature 98.3 F Pulse Rate 60 Respiratory 18 20 Rate Blood Pressure 140/74 149/85 Laboratory Tests 03/31/17 03/31/17 04/01/17 21:40 21:40 06:00 WBC 11.0 H 9.9 Random Glucose 288 H Hemoglobin A1c % 04/01/17 04/02/17 04/03/17 06:00 06:00 05:35 WBC 7.8 7.1 Random Glucose 216 H D Hemoglobin A1c % 04/03/17 04/03/17 04/04/17 05:35 05:35 06:15 WBC Random Glucose 168 H 147 H Hemoglobin A1c % 8.9 H 04/05/17 04/05/17 06:58 06:58 WBC 6.3 Random Glucose 142 H Hemoglobin A1c % 04/01- Forearm X-ray: AP and lateral views reveal intact bones with no sign of fracture or subluxation and no sign of blastic or lytic findings. There is no sign of soft tissue air. There is some minimal swelling. A foreign body is not seen. 04/03 - Forearm MRI: No evidence of osteomyelitis of the radius or ulna. Diffuse soft tissue swelling compatible with cellulitis. 2 cm subcutaneous fluid collection anterior to the lower third of the ulna compatible with abscess collection. This is nonspecific in its appearance at this noncontrast study HOSPITAL COURSE: Date of Admission:03/31/17 Date of Discharge: 04/05/17 47 yo woman with PMH of HTN and poorly controlled NIDDM who presented with increasing L forearm pain and swelling following a cat bite/scratch after attempting to bathe her cat. She had started on Augmentin PO from the ED, but the pain worsened so she returned and was admitted for Left arm cellulitis. In the ED she was afebrile without leukocytosis. She was started on Unasyn 3 gm Q8H. She received 5 days of Unasyn during her stay with improvement in her cellulitis. On 04/03, there was some fluctuance around one of her bite holt. Patient underwent a bedside I&D by Dr. Booth and cultures were sent (as above). She was discharged home on 5 days of augmentin 875mg BID. She was also found to have uncontrolled diabetes with an A1c of 8.9. Patient did not take her metformin due to insurance issues and not being able to afford her medicaiton. She was started on levemir 10 units in the hospital and will be d/c'ed on 10 units. She will f/u with her PCP and keep a log of her sugars to titrate her medication as needed. Patient will have a visiting nurse help her with administering her levemir. This was discussed with the patient and she is in agreement. Minutes to complete discharge: 30 Discharge Summary Reason For Visit: CELLULITIS OF 1 UPPER EXTREMITY Current Active Problems Cat bite (Acute) Cellulitis of left upper extremity (Acute) Hypokalemia (Acute) DM (diabetes mellitus) (Chronic) HTN (hypertension) (Chronic) Condition: Improved - Instructions Diet, Activity, Other Instructions: You were in the hospital due to a cat bite that caused redness and swelling in your left arm. You had incision and drainage of one of the wounds on your left forearm by Dr. Rickey Booth of [facility]. It is ok to shower at home with your dressing off - soap and water is fine. Do not put anything else on the wound. Keep covered after cleansing with small ( 2x2 folded) gauze and tape or gauze and a large bandaid until healed. Do not swim until wound is healed. Use Tylenol as needed for pain as directed on the bottle. Call Dr. Booth's office at [phone] for follow up appointment next week on Saturday. The clinic is in the [facility] on the first floor of the hospital. Return to the ER if you have: fever 101F or greater, increasing or unusual pain/redness/swelling or drainage from wounds. Take antibiotics as directed. Please follow up with a primary care provider within 1 week. A referral has been provided for you. You will be started on a medication for your diabetes. Please keep a log of your sugars and bring this information to your primary care provider. Continue taking these medications: Vasotec 20 mg by mouth daily Start taking these medications: Levemir 10 units at night. Augmentin 875 mg two times per day for 5 more days to finish your antibiotic course If you have chest pain, shortness of breath, or any new symptoms please come back to the hospital immediately. Referrals: Rickey Booth MD [Staff Physician] - Adrienne Cordon MD [Staff Physician] - Disposition: HOME - Home Medications Comprehensive Discharge Medication List: Ambulatory Orders Enalapril Maleate [Vasotec] 20 mg PO DAILY #30 tablet 02/26/17 Alcohol Antiseptic Pads [Caretouch Alcohol Prep Pad] 1 each TP ASDIR #100 med..pad 04/05/17 Amox-Tr/K Cl [Augmentin - 875Mg Tablet] 1 tab PO BID #10 tablet 04/05/17 Insulin (Levemir) [Levemir Flexpen -] 10 units SQ DAILY #1 pen 04/05/17 Miscellaneous Medical Supply [Glucometer Device] 1 each .ROUTE ASDIR #1 kit 12/17 Miscellaneous Medical Supply [Glucometer Test Strips #100] 1 each .ROUTE ASDIR # 1 box 04/05/17 Problem List - Problems (1) Cellulitis of left upper extremity (2) Hypokalemia (3) HTN (hypertension) (4) DM (diabetes mellitus) (5) DVT prophylaxis This patient is new to me today: No Emergency Visit: No Critical Care patient: No - Discharge Referral Referred to [facility] No
== END 2017-04-05 18:22 | disposition home health service (06) | DRG 361 ==
LOC: JER 20:18 → JERBED 23:33 → J5S 04-01 01:18
PROVIDERS: ADMIT Internal Medicine; ATTEND Internal Medicine
PROC: 0HBEXZZ Excision of Left Lower Arm Skin, External Approach (ICD-10-PCS; principal; 2017-04-03)
PROC: 0H9EXZZ Drainage of Left Lower Arm Skin, External Approach (ICD-10-PCS; 2017-04-03)
DX: L03.114 Cellulitis of left upper limb (principal); S41.152A Open bite of left upper arm, initial encounter; W55.01XA Bitten by cat, initial encounter; Y93.89 Activity, other specified; Y92.238 Other place in hospital as the place of occurrence of the external cause; I10 Essential (primary) hypertension; E11.9 Type 2 diabetes mellitus without complications; E87.6 Hypokalemia
CPT/HCPCS: 36415; 73090-TC-LT; 73218-LT; 80048; 80053; 83036; 84703; 85025; 85027; 87040; 87070; 87205; 90715; 93005; 93010; 96365; 99281-25; 99282-25; J1644

== ENCOUNTER 2017-04-27 02:12 | Emergency (ER) | payer OTHER ==
[2017-04-27 02:47] LABS: URINE APPEARANCE SLCLOUDY; URINE BILIRUBIN NEGATIVE (NEGATIVE); URINE BLOOD 3+ (NEGATIVE); URINE COLOR LTYELLOW; URINE GLUCOSE (UA) NEGATIVE (NEGATIVE); URINE KETONE NEGATIVE (NEGATIVE); URINE NITRITE NEGATIVE (NEGATIVE); URINE UROBILINOGEN NEGATIVE mg/dL (0.2-1.0)
[2017-04-27 02:48] LABS: URINE LEUK ESTERASE 3+ (NEGATIVE); URINE PROTEIN 1+ (NEGATIVE)
--- NOTE | 2017-04-27 02:48 | PDOC ---
History of Present Illness - General Stated Complaint: URINARY PROBLEM Time Seen by Provider: 04/27/17 02:17 History Source: Patient Exam Limitations: No Limitations - History of Present Illness Travel History: No Initial Comments: 04/27/17 02:45 47-year-old female with hypertension presents to the emergency department complaining of pain upon urination, frequency/urgency, hematuria without nausea/ vomiting, fever/chills, chest pain, shortness of breath, abdominal pains, flank pains. Patient states the symptoms started early this afternoon. Patient denies any other complaints. LMP: 04/02/2017 Timing/Duration: reports: intermittent Abdominal Pain Onset Location: reports: suprapubic Past History - Past Medical History Allergies/Adverse Reactions: Allergies Allergy/AdvReac Type Severity Reaction Status Date / Time No Known Allergies Allergy Verified 04/27/17 02:53 Home Medications: Ambulatory Orders Enalapril Maleate [Vasotec] 20 mg PO DAILY #30 tablet 02/26/17 Alcohol Antiseptic Pads [Caretouch Alcohol Prep Pad] 1 each TP ASDIR #100 med..pad 04/05/17 Amox-Tr/K Cl [Augmentin - 875Mg Tablet] 1 tab PO BID #10 tablet 04/05/17 Insulin (Levemir) [Levemir Flexpen -] 10 units SQ DAILY #1 pen 04/05/17 Miscellaneous Medical Supply [Glucometer Device] 1 each .ROUTE ASDIR #1 kit 12/17 Miscellaneous Medical Supply [Glucometer Test Strips #100] 1 each .ROUTE ASDIR # 1 box 04/05/17 Nitrofurantoin Monohyd/M-Cryst [Macrobid -] 100 mg PO BID #14 capsule 04/27/17 Phenazopyridine HCl [Pyridium] 100 mg PO BID #4 tablet 04/27/17 Diabetes: Yes (niddm) HTN: Yes - Surgical History Abdominal Surgery: Yes (tubal ligation) - Psycho/Social/Smoking Cessation Hx Anxiety: No Suicidal Ideation: No Smoking History: Never smoked Have you smoked in the past 12 months: No Hx Alcohol Use: No Drug/Substance Use Hx: No Substance Use Type: None Review of Systems - Review of Systems Able to Perform ROS?: Yes Comments:: 04/27/17 02:46 CONSTITUTIONAL: Absent: fever, chills, diaphoresis, generalized weakness, malaise, loss of appetite HEENT: Absent: rhinorrhea, nasal congestion, throat pain, throat swelling, difficulty swallowing, mouth swelling, ear pain, eye pain, visual Changes CARDIOVASCULAR: Absent: chest pain, loss of consciousness, palpitations, irregular heart rate, peripheral edema RESPIRATORY: Absent: cough, shortness of breath, dyspnea with exertion, orthopnea, wheezing, stridor, hemoptysis GASTROINTESTINAL: Absent: abdominal pain, abdominal distension, nausea, vomiting, diarrhea, constipation, melena, hematochezia GENITOURINARY: +dysuria, frequency, urgency, hesitancy, hematuria, Absent: flank pain, genital pain MUSCULOSKELETAL: Absent: myalgia, arthralgia, joint swelling SKIN: Absent: rash, itching, pallor HEMATOLOGIC/IMMUNOLOGIC: Absent: easy bleeding, easy bruising, lymphadenopathy, frequent infections ENDOCRINE: Absent: unexplained weight gain, unexplained weight loss, heat intolerance, cold intolerance NEUROLOGIC: Absent: headache, focal weakness or paresthesias, dizziness, unsteady gait, seizure, mental status changes, bladder or bowel incontinence PSYCHIATRIC: Absent: anxiety, depression, suicidal or homicidal ideation, hallucinations. Is the patient limited Icelandic proficient: No *Physical Exam - Physical Exam Comments: 04/27/17 02:47 GENERAL: Well developed, well nourished. Awake and alert. No acute distress. HEENT: Normocephalic, atraumatic. PERRLA, EOMI. No conjunctival pallor. Sclera are non- icteric. Moist mucous membranes. Oropharynx is clear. NECK: Supple. Full ROM. No JVD. Carotid pulses 2+ and symmetric, without bruits. No thyromegaly. No lymphadenopathy. CARDIOVASCULAR: Regular rate and rhythm. No murmurs, rubs, or gallops. Distal pulses are 2+ and symmetric. PULMONARY: No evidence of respiratory distress. Lungs clear to auscultation bilaterally. No wheezing, rales or rhonchi. ABDOMINAL: Soft. Non-tender. Non-distended. No rebound or guarding. No organomegaly. Normoactive bowel sounds. MUSCULOSKELETAL Normal range of motion at all joints. No bony deformities or tenderness. No CVA tenderness. EXTREMITIES: No cyanosis. No clubbing. No edema. No calf tenderness. SKIN: Warm and dry. Normal capillary refill. No rashes. No jaundice. NEUROLOGICAL: Alert, awake, appropriate. Cranial nerves 2-12 intact. No deficits to light touch and temperature in face, upper extremities and lower extremities. No motor deficits in the in face, upper extremities and lower extremities. Normoreflexic in the upper and lower extremities. Normal speech. Toes are down- going bilaterally. Gait is normal without ataxia. PSYCHIATRIC: Cooperative. Good eye contact. Appropriate mood and affect. *DC/Admit/Observation/Transfer Diagnosis at time of Disposition: Urinary tract infection Qualifiers: Urinary tract infection type: acute cystitis Hematuria presence: with hematuria Qualified Code(s): N30.01 - Acute cystitis with hematuria - Discharge Dispostion Admit: No - Prescriptions Prescriptions: Nitrofurantoin Monohyd/M-Cryst [Macrobid -] 100 mg PO BID #14 capsule Phenazopyridine HCl [Pyridium] 100 mg PO BID #4 tablet - Referrals Referrals: Jenaro Thompson MD [Staff Physician] - - Patient Instructions Printed Discharge Instructions: DI for Urinary Tract Infection (UTI) Additional Instructions: Increase fluids Follow up with your line out man or the urologist listed on your discharge Return to the ER for severe/persistent/worsening symptoms Print Language: DANISH
[2017-04-27 02:51] VITALS: BP 183/90; PULSE 69; TEMP 97.1; BMI 30.3
--- NOTE | 2017-04-27 02:51 | PDOC ---
*Physical Exam - Vital Signs Last Vital Signs Temp Pulse Resp BP Pulse Ox 97.1 F L 69 17 183/90 99 04/27/17 02:48 04/27/17 02:48 04/27/17 02:48 04/27/17 02:48 04/27/17 02:48 ED Treatment Course - ADDITIONAL ORDERS Additional order review: Laboratory Results 04/27/17 02:17 Urine Color Ltyellow Urine Appearance Slcloudy Urine pH 7.0 Urine Protein 1+ H Urine Glucose (UA) Negative Urine Ketones Negative Urine Blood 3+ H Urine Nitrite Negative Urine Bilirubin Negative Urine Urobilinogen Negative Ur Leukocyte Esterase 3+ H Urine HCG, Qual Negative Medical Decision Making - Medical Decision Making 04/27/17 02:51 Pt seen by the Advanced Practice Provider under my direct supervision Ancillary studies reviewed I agree with plan as outlined by the Advanced Practice Provider SHRAVAN Lemus *DC/Admit/Observation/Transfer Diagnosis at time of Disposition: Urinary tract infection Qualifiers: Urinary tract infection type: acute cystitis Hematuria presence: with hematuria Qualified Code(s): N30.01 - Acute cystitis with hematuria - Prescriptions Prescriptions: Nitrofurantoin Monohyd/M-Cryst [Macrobid -] 100 mg PO BID #14 capsule Phenazopyridine HCl [Pyridium] 100 mg PO BID #4 tablet - Referrals Referrals: Jenaro Thompson MD [Staff Physician] - - Patient Instructions Printed Discharge Instructions: DI for Urinary Tract Infection (UTI) Additional Instructions: Increase fluids Follow up with your fast brim pouncer or the urologist listed on your discharge Return to the ER for severe/persistent/worsening symptoms Print Language: BENGALI - Post Discharge Activity
[2017-04-27] MEDS ORDERED: NITROFURANTOIN MACROCRYSTAL 50 MG CAPSULE (FP) PO SCH (03:00)
[2017-04-27] MEDS ORDERED: PHENAZOPYRIDINE HCL 100 MG TABLET (FP) ONE (03:01)
[2017-04-27] MEDS ORDERED: PHENAZOPYRIDINE HCL 100 MG TABLET (FP) PO ONE (03:02)
[2017-04-27 03:07] LABS: URINE BACTERIA RARE /hpf (NONE SEEN); URINE RBC 46 /hpf (0-3); URINE WBC 23 /hpf (3-5)
== END 2017-04-27 03:04 | disposition home or self-care (01) ==
LOC: JER 02:12
DX: N30.01 Acute cystitis with hematuria (principal)
CPT/HCPCS: 81003; 81015; 84703; 99281-25

== ENCOUNTER 2017-09-15 20:14 | Emergency (ER) | payer OTHER ==
[2017-09-15 20:35] VITALS: BP 168/103; PULSE 88; TEMP 99.2; BMI 31.2
[2017-09-15 21:48] LABS: HCG,QUALITATIVE URINE NEGATIVE
[2017-09-15 21:51] LABS: URINE APPEARANCE CLEAR; URINE BILIRUBIN NEGATIVE (NEGATIVE); URINE BLOOD 3+ (NEGATIVE); URINE COLOR STRAW; URINE GLUCOSE (UA) NEGATIVE (NEGATIVE); URINE KETONE NEGATIVE (NEGATIVE); URINE NITRITE NEGATIVE (NEGATIVE); URINE PROTEIN NEGATIVE (NEGATIVE); URINE UROBILINOGEN NEGATIVE mg/dL (0.2-1.0)
[2017-09-15 21:53] LABS: URINE LEUK ESTERASE 3+ (NEGATIVE)
[2017-09-15 21:55] LABS: URINE BACTERIA RARE /hpf (NONE SEEN)
[2017-09-15] MEDS ORDERED: IBUPROFEN 600 MG TABLET (FP) PO ONE ×2 (22:18→22:22)
[2017-09-15] MEDS ORDERED: NITROFURANTOIN MACROCRYSTAL 50 MG CAPSULE (FP) ONE (22:22)
[2017-09-15] MEDS ORDERED: PHENAZOPYRIDINE HCL 100 MG TABLET (FP) PO ONE (22:25)
--- NOTE | 2017-09-15 22:26 | PDOC ---
History of Present Illness <Toma Kooreen - Last Filed: 09/15/17 22:26> - General History Source: Patient Exam Limitations: No Limitations - History of Present Illness Initial Comments: 09/15/17 22:51 The patient is a 47 year old female with a significant PMH of diabetes and hypertension who presents to the emergency department complaining of dysuria, frequency and urgency today. The patient states she had UTIs in the past and notes these symptoms feel similar. The patient reports she has not taken anything for the pain. The patient denies any hematuria or flank pain. The patient denies chest pain, shortness of breath, headache and dizziness. Denies fever, chills, nausea, vomit, diarrhea and constipation. Allergies: NKA Past surgical history: None reported. Social history: No reported alcohol, cigarette or drug use. <Carol Govea - Last Filed: 09/15/17 22:53> - General Chief Complaint: Hematuria Stated Complaint: PAIN Time Seen by Provider: 09/15/17 20:44 Past History - Past Medical History COPD: No Diabetes: Yes (niddm) HTN: Yes - Surgical History Abdominal Surgery: Yes (tubal ligation) - Suicide/Smoking/Psychosocial Hx Smoking History: Never smoked Have you smoked in the past 12 months: No Information on smoking cessation initiated: No Hx Alcohol Use: No Drug/Substance Use Hx: No Substance Use Type: None <KooYolie - Last Filed: 09/15/17 22:26> <Carol Govea - Last Filed: 09/15/17 22:53> - Past Medical History Allergies/Adverse Reactions: Allergies Allergy/AdvReac Type Severity Reaction Status Date / Time No Known Allergies Allergy Verified 09/15/17 20:35 Home Medications: Ambulatory Orders Enalapril Maleate [Vasotec] 20 mg PO DAILY #30 tablet 02/26/17 Nitrofurantoin Monohyd/M-Cryst [Macrobid -] 100 mg PO BID #14 capsule 04/27/17 Phenazopyridine HCl [Pyridium] 100 mg PO BID #4 tablet 04/27/17 Metformin HCl 500 mg PO DAILY 09/15/17 Nitrofurantoin Monohyd/M-Cryst [Macrobid -] 100 mg PO BID #14 capsule 09/15/17 Phenazopyridine HCl [Pyridium] 100 mg PO BID #20 tablet 09/15/17 Review of Systems - Review of Systems Able to Perform ROS?: Yes Comments:: 09/15/17 22:51 GENERAL/CONSTITUTIONAL: No fever or chills. No weakness. HEAD, EYES, EARS, NOSE AND THROAT: No change in vision. No ear pain or discharge. No sore throat. CARDIOVASCULAR: No chest pain or shortness of breath. RESPIRATORY: No cough, wheezing, or hemoptysis. GASTROINTESTINAL: No nausea, vomiting, diarrhea or constipation. GENITOURINARY: (+) Dysuria. (+) Frequency. (+) Urgency. No change in urination. MUSCULOSKELETAL: No joint or muscle swelling or pain. No neck or back pain. SKIN: No rash NEUROLOGIC: No headache, vertigo, loss of consciousness, or change in strength/ sensation. ENDOCRINE: No increased thirst. No abnormal weight change. HEMATOLOGIC/LYMPHATIC: No anemia, easy bleeding, or history of blood clots. ALLERGIC/IMMUNOLOGIC: No hives or skin allergy. <Carol Govea - Last Filed: 09/15/17 22:53> *Physical Exam - Vital Signs Last Vital Signs Temp Pulse Resp BP Pulse Ox 99.2 F 88 18 168/103 99 09/15/17 20:29 09/15/17 20:29 09/15/17 20:29 09/15/17 20:29 09/15/17 20:29 <Yolie Koo - Last Filed: 09/15/17 22:26> - Vital Signs Last Vital Signs Temp Pulse Resp BP Pulse Ox 99.2 F 88 18 168/103 99 09/15/17 20:29 09/15/17 20:29 09/15/17 20:29 09/15/17 20:29 09/15/17 20:29 - Physical Exam Comments: 09/15/17 22:52 GENERAL: Awake, alert, and fully oriented, in no acute distress HEAD: No signs of trauma EYES: PERRLA, EOMI, sclera anicteric, conjunctiva clear ENT: Auricles normal inspection, hearing grossly normal, nares patent, oropharynx clear without exudates. Moist mucosa NECK: Normal ROM, supple, no lymphadenopathy, JVD, or masses LUNGS: Breath sounds equal, clear to auscultation bilaterally. No wheezes, and no crackles HEART: Regular rate and rhythm, normal S1 and S2, no murmurs, rubs or gallops ABDOMEN: (+) Suprapubic discomfort. Soft, nontender, normoactive bowel sounds. No guarding, no rebound. No masses EXTREMITIES: Normal range of motion, no edema. No clubbing or cyanosis. No cords, erythema, or tenderness NEUROLOGICAL: Cranial nerves II through XII grossly intact. Normal speech, normal gait SKIN: Warm, Dry, normal turgor, no rashes or lesions noted. <Carol Govea - Last Filed: 09/15/17 22:53> ED Treatment Course - ADDITIONAL ORDERS Additional order review: Laboratory Results 09/15/17 21:40 Urine Color Straw Urine Appearance Clear Urine pH 6.0 Ur Specific [place] 1.001 Urine Protein Negative Urine Glucose (UA) Negative Urine Ketones Negative Urine Blood 3+ H Urine Nitrite Negative Urine Bilirubin Negative Urine Urobilinogen Negative Ur Leukocyte Esterase 3+ H Urine WBC (Auto) 5 Urine RBC (Auto) <1 Urine Bacteria Rare Urine HCG, Qual Negative - Medications Given in the ED: ED Medications Discontinued Medications Generic Name Dose Route Start Last Admin Trade Name Freq PRN Reason Stop Dose Admin Ibuprofen 600 mg 09/15/17 22:18 09/15/17 22:24 Motrin - PO 09/15/17 22:19 600 mg ONCE ONE Administration <Yolie Koo - Last Filed: 09/15/17 22:26> - ADDITIONAL ORDERS Additional order review: Laboratory Results 09/15/17 21:40 Urine Color Straw Urine Appearance Clear Urine pH 6.0 Ur Specific [place] 1.001 Urine Protein Negative Urine Glucose (UA) Negative Urine Ketones Negative Urine Blood 3+ H Urine Nitrite Negative Urine Bilirubin Negative Urine Urobilinogen Negative Ur Leukocyte Esterase 3+ H Urine WBC (Auto) 5 Urine RBC (Auto) <1 Urine Bacteria Rare Urine HCG, Qual Negative - Medications Given in the ED: ED Medications Discontinued Medications Generic Name Dose Route Start Last Admin Trade Name Freq PRN Reason Stop Dose Admin Ibuprofen 600 mg 09/15/17 22:18 09/15/17 22:24 Motrin - PO 09/15/17 22:19 600 mg ONCE ONE Administration Nitrofurantoin Macrocrystals 100 mg 09/15/17 22:30 09/15/17 22:24 Macrodantin - PO 100 mg ONCE MINDY Administration Phenazopyridine HCl 100 mg 09/15/17 22:25 09/15/17 22:35 Pyridium - PO 09/15/17 22:26 100 mg ONCE ONE Administration <Carol Govea - Last Filed: 09/15/17 22:53> *DC/Admit/Observation/Transfer <Yolie Koo - Last Filed: 09/15/17 22:26> - Attestations Scribe Attestion: 09/15/17 22:52 Documentation prepared by Carol Govea, acting as manager medical affairs for Yolie Koo MD. <Carol Govea - Last Filed: 09/15/17 22:53> Diagnosis at time of Disposition: Lower urinary tract infectious disease - Prescriptions Prescriptions: Nitrofurantoin Monohyd/M-Cryst [Macrobid -] 100 mg PO BID #14 capsule Phenazopyridine HCl [Pyridium] 100 mg PO BID #20 tablet
[2017-09-15] MEDS ORDERED: NITROFURANTOIN MACROCRYSTAL 50 MG CAPSULE (FP) PO SCH (22:30)
[2017-09-15] MEDS ORDERED: PHENAZOPYRIDINE HCL 100 MG TABLET (FP) ONE (22:32)
== END 2017-09-15 22:35 | disposition home or self-care (01) ==
LOC: JER 20:14
DX: N39.0 Urinary tract infection, site not specified (principal); I10 Essential (primary) hypertension; E11.9 Type 2 diabetes mellitus without complications; Z79.84 Long term (current) use of oral hypoglycemic drugs
CPT/HCPCS: 81003; 81015; 84703; 87086; 99281-25

== ENCOUNTER 2018-08-11 23:36 | Emergency (ER) | payer OTHER ==
--- NOTE | 2018-08-11 23:41 | PDOC ---
History of Present Illness - General Chief Complaint: Urinary Problem Stated Complaint: Blood Pressure Problem/Vaginal Bleeding Time Seen by Provider: 08/11/18 23:40 History Source: Patient - History of Present Illness Initial Comments: 08/12/18 00:48 48 year old female c/o vaginal bleeding x 9 days and dysuria x 1 day. 3 weeks ago completed antibiotics for UTI 3 weeks ago. reports feeling tored patient reports that her blood pressure was noted to be high when she saw a provider 3 weeks ago and was started on enalapril. denies headache, dizziness, NVD,flank pain, Past History - Past Medical History Allergies/Adverse Reactions: Allergies Allergy/AdvReac Type Severity Reaction Status Date / Time No Known Allergies Allergy Verified 08/12/18 00:07 Home Medications: Ambulatory Orders Enalapril Maleate [Vasotec] 20 mg PO DAILY #30 tablet 02/26/17 metFORMIN HCL [Metformin HCl] 500 mg PO BID 09/15/17 COPD: No Diabetes: Yes (niddm) HTN: Yes - Surgical History Abdominal Surgery: Yes (tubal ligation) - Suicide/Smoking/Psychosocial Hx Smoking History: Never smoked Have you smoked in the past 12 months: No Hx Alcohol Use: No Drug/Substance Use Hx: No Substance Use Type: None Review of Systems - Review of Systems Able to Perform ROS?: Yes Is the patient limited Turkmen proficient: No Constitutional: No: Symptoms Reported, See HPI, Chills, Diaphoresis, Fever, Loss of Appetite, Malaise, Night Sweats, Weakness, Weight Stable, Unintentional Wgt. Loss, Unexplained wgt Loss, Other : Yes: Dysuria, Other (vaginal bleeding) *Physical Exam - Vital Signs 08/12/18 01:15 Last Vital Signs Temp Pulse Resp BP Pulse Ox 98.6 F 65 18 146/76 100 08/12/18 00:09 08/12/18 01:00 08/12/18 01:00 08/12/18 01:00 08/12/18 01:00 - Physical Exam General Appearance: Yes: Appropriately Dressed Respiratory/Chest: positive: Lungs Clear, Normal Breath Sounds Cardiovascular: positive: Regular Rate Female Pelvic Exam: positive: cervical os closed, vaginal bleeding (in vault). negative: CMT Gastrointestinal/Abdominal: positive: Normal Bowel Sounds, Soft. negative: Tender Musculoskeletal: positive: Normal Inspection. negative: CVA Tenderness, Vertebral Tenderness Extremity: positive: Normal Capillary Refill, Normal Inspection, Normal Range of Motion Integumentary: positive: Normal Color, Dry, Warm Neurologic: positive: Fully Oriented, Alert ED Treatment Course - LABORATORY CBC & Chemistry Diagram: 08/12/18 01:20 08/12/18 01:20 Medical Decision Making - Medical Decision Making 08/12/18 01:19 A: vaginal bleeding p: labs TVUSThe uterus and endometrial stripe appear normal. scar noted. Nabothian cyst in the cervix. 8 mm simple follicle in left ovary. Right ovary not visualized. will refer patient to follow up with doctor *DC/Admit/Observation/Transfer Diagnosis at time of Disposition: Vaginal bleeding High blood pressure Qualifiers: Hypertension type: unspecified Qualified Code(s): I10 - Essential (primary) hypertension - Discharge Dispostion Disposition: HOME - Referrals Referrals: [facility] [Outside] - Patient Instructions Printed Discharge Instructions: DI for Vaginal Bleeding Additional Instructions: return to the ER if you are soaking 2 pads per hour, severe abdominal pain, or worsening symptoms. please follo wup with a PCP for b/p management Additional Instructions: * Please call your personal physician to report your Emergency Department visit and to report your progress, if any. * If there is no improvement in symptoms in 2 days call your physician. * Return to the Emergency Department for any worsening symptoms. - Post Discharge Activity Forms/Work/School Notes: Back to Work
[2018-08-12 00:12] VITALS: TEMP 98.6
[2018-08-12 00:47] LABS: URINE APPEARANCE CLEAR; URINE BILIRUBIN NEGATIVE (<2.0 mg/dL); URINE COLOR COLORLESS; URINE GLUCOSE (UA) NEGATIVE (NEGATIVE); URINE KETONE NEGATIVE (NEGATIVE); URINE LEUK ESTERASE NEGATIVE (NEGATIVE); URINE NITRITE NEGATIVE (NEGATIVE); URINE PROTEIN NEGATIVE (NEGATIVE); URINE UROBILINOGEN NEGATIVE mg/dL (0.2-1.0)
[2018-08-12 00:48] LABS: HCG,QUALITATIVE URINE Negative
[2018-08-12 01:01] VITALS: BP 146/76; PULSE 65
[2018-08-12 01:06] LABS: EPI CELLS FEW /HPF (FEW)
[2018-08-12 01:32] LABS: BASO % 0.8 % (0-2.0); EOS % 3.2 % (0-4.5); HEMATOCRIT 37.5 % (32.4-45.2); LYMPH % 35.3 % (8-40); MCH 29.5 pg (25.7-33.7); MCHC 34.7 g/dl (32.0-36.0); MEAN CELL VOLUME 84.8 fl (80-96); MEAN PLT VOLUME 9.2 fl (7.5-11.1); MONO % 6.8 % (3.8-10.2); NEUT % 53.9 % (42.8-82.8); PLATELET COUNT 237 K/MM3 (134-434); RBC 4.43 M/mm3 (3.60-5.2); RDW 13.4 % (11.6-15.6); WHITE BLOOD COUNT 8.7 K/mm3 (4.0-10.0)
[2018-08-12 02:05] LABS: ALBUMIN 3.8 g/dl (3.4-5.0); ALK PHOS 93 U/L (45-117); ANION GAP 6 MMOL/L (8-16); BILIRUBIN,TOTAL 0.3 mg/dL (0.2-1); BLOOD UREA NITROGEN 15 mg/dL (7-18); CALCIUM 8.6 mg/dL (8.5-10.1); CHLORIDE 107 mmol/L (98-107); CO2 26 mmol/L (21-32); CREATININE 0.8 mg/dL (0.55-1.3); GLUCOSE,RANDOM 178 mg/dL (74-106); POTASSIUM 3.8 mmol/L (3.5-5.1); SGOT/AST 16 U/L (15-37); SGPT/ALT 25 U/L (13-61); SODIUM 139 mmol/L (136-145); TOT PROT 7.6 g/dl (6.4-8.2)
--- NOTE | 2018-08-12 12:57 | EKG ---
Test Reason : Blood Pressure : / mmHG Vent. Rate : 068 BPM Atrial Rate : 068 BPM P-R Int : 134 ms QRS Dur : 086 ms QT Int : 422 ms P-R-T Axes : 039 029 025 degrees QTc Int : 448 ms NORMAL SINUS RHYTHM NORMAL ECG WHEN COMPARED WITH ECG OF 31-MAR-2017 23:36, NO SIGNIFICANT CHANGE WAS FOUND Confirmed by Braulio Alcantara ([id number]) on 08/12/2018 12:57:01 PM Referred By: Confirmed By:Braulio Alcantara
== END 2018-08-12 02:47 | disposition home or self-care (01) ==
LOC: JER 23:36
DX: N93.9 Abnormal uterine and vaginal bleeding, unspecified (principal); I10 Essential (primary) hypertension; E11.9 Type 2 diabetes mellitus without complications
CPT/HCPCS: 36415; 76830-TC; 80053; 81003; 81015; 84703; 85025; 87086; 93005; 93010; 99283-25

== ENCOUNTER 2023-05-13 18:37 | Emergency (ER) | payer OTHER ==
[2023-05-13 18:48] VITALS: BMI 24.4
[2023-05-13] MEDS ORDERED: ENALAPRIL MALEATE 10 MG TABLET PO ONE (20:01)
[2023-05-13] MEDS ORDERED: AMOX TR/POT CLAV 875MG/125MG TABLETS (FP) PO ONE (20:14)
[2023-05-13] MEDS ORDERED: AMOX TR/POT CLAV 875MG/125MG TABLETS (FP) ONE (20:18)
[2023-05-13] MEDS ORDERED: ENALAPRIL MALEATE 5 MG TABLET ONE (20:18)
[2023-05-13 20:48] VITALS: BP 171/88; PULSE 67; RESP 20; TEMP 98.1
== END 2023-05-13 20:52 | disposition home or self-care (01) ==
LOC: JER 18:37
PROC: 093K7ZZ Control Bleeding in Nasal Mucosa and Soft Tissue, Via Natural or Artificial Opening (ICD-10-PCS; principal; 2023-05-13)
DX: R04.0 Epistaxis (principal)
CPT/HCPCS: 99283-25

== ENCOUNTER 2023-05-15 12:07 | Emergency (ER) | payer OTHER ==
[2023-05-15 12:20] VITALS: BP 158/77; PULSE 73; RESP 17; TEMP 98.9; BMI 24.2
[2023-05-15] MEDS ORDERED: SILVER NITRATE 75% APPLIC STCK 1 PKT EACH TP ONE (12:44)
[2023-05-15] MEDS ORDERED: SILVER SULFADIAZINE 1% TOP CREAM 50 GM JAR TP ONE (12:46)
[2023-05-15] MEDS ORDERED: SILVER NITRATE 75% APPLIC STCK 1 PKT EACH ONE (12:48)
== END 2023-05-15 13:03 | disposition home or self-care (01) ==
LOC: JERFT 12:07
DX: R51.9 Headache, unspecified (principal); R04.0 Epistaxis; Z48.00 Encounter for change or removal of nonsurgical wound dressing
CPT/HCPCS: 99283-25